=== PATIENT | male | born 2000 | race Caucasian/White ===

== ENCOUNTER 2022-01-08 16:55 | Emergency (ER) | payer BC, SELFPAY ==
[2022-01-08 17:19] VITALS: BP 173/112; PULSE 85; RESP 18; TEMP 36.9; O2SAT 100
--- NOTE | 2022-01-08 20:19 | PC.NURSE ---
Pt was called for a room at 19:03, 19:36, and 20:05. Pt did not respond x 3 calls. RN searched waiting room and outside with no signs of patient. Pt did not inform staff of leaving.
== END 2022-01-08 20:40 | disposition left against medical advice (07) ==
LOC: ANHED 20:26
DX: R10.13 Epigastric pain (principal)
CPT/HCPCS: 99199

== ENCOUNTER 2022-03-07 09:37 | Emergency (ER) | payer BC, SELFPAY ==
--- NOTE | ~2022-03-07 | XR_ITS ---
EXAMINATION: XR abdomen obstructive series DATE: 03/07/2022 10:39 INDICATION: Left lower quadrant pain TECHNIQUE: Upright and supine views of the abdomen were obtained. COMPARISON: None. FINDINGS: The bowel gas pattern is normal. There is no free intraperitoneal gas. No dilated loops of bowel are evident. The visualized lung bases are clear. IMPRESSION: 1. Nonobstructive bowel gas pattern. Reviewed, dictated and finalized at location B.
[2022-03-07 09:54] VITALS: BP 157/103; PULSE 81; RESP 16; TEMP 36.5; O2SAT 99
--- NOTE | 2022-03-07 10:19 | ED.ABDPAIN ---
HPI - Abdominal Pain General Chief Complaint: Abdominal Pain Stated Complaint: Left side pain Time Seen by Provider: 03/07/22 10:19 Source: patient Mode of arrival: ambulatory Limitations: no limitations History of Present Illness HPI narrative: 21-year-old male with no significant medical history presents with complaint of left lower quadrant abdominal pain for 3 days. Reports that 4 days ago he lifted a large motor that weighed approximately 700 to 800 pounds coworkers into the back of a pickup truck. Reports some mild pain at that time when picking up the motor. The next day and pain became worse. Pain worse with movement, squatting, coughing. Having normal bowel movements. No urinary symptoms. Denies nausea vomiting. Does not have a PCP. All systems reviewed and negative except as noted above. Related Data Home Medications Medication Instructions Recorded Confirmed No Home Medications 03/07/22 03/07/22 Allergies Allergy/AdvReac Type Severity Reaction Status Date / Time No Known Allergies Allergy Mild Unverified 04/11/09 15:32 Review of Systems Review of Systems: CONSTITUTIONAL: Denies fever, chills, or sweats. EYES: Denies visual changes, redness, or discharge. ENT: Denies rhinorrhea, congestion, sore throat, or otalgia. CARDIOVASCULAR: Denies chest pain, palpitations, or edema. RESPIRATORY: Denies cough or dyspnea. GASTROINTESTINAL: Denies nausea, vomiting, or diarrhea. Reports left lower quadrant abdominal pain. GENITOURINARY: Denies dysuria or hematuria. SKIN: Denies rash or itching. MUSCULOSKELETAL: Denies back pain, joint pain, or myalgia. NEUROLOGIC: Denies headache, numbness, or weakness. PSYCHIATRIC: Denies anxiety or depression. All other systems reviewed are negative, except as documented in HPI. PMFSH Comments At time of signature, agree with nursing past medical, surgical, social and family history. There is no relevant family history pertinent to the presenting complaint. Exam Narrative: GENERAL: This is a well-nourished, well-developed patient, in no apparent distress. HEAD: normocephalic, atraumatic. EYES: PERRL. Sclera clear/white. Vision is grossly intact. EARS: External ears normal NOSE: External nose normal THROAT: Mucous membranes moist, posterior pharynx clear. NECK: Neck supple, non-tender without lymphadenopathy, masses or thyromegaly. CARDIOVASCULAR: Regular rate and rhythm without murmurs, gallops, or rubs. RESPIRATORY: Clear to auscultation. Breath sounds equal bilaterally. No wheezes, rales, or rhonchi. GASTROINTESTINAL: Tenderness to left lower quadrant. Abdomen soft, nondistended. Bowel sounds are active. No hepato-splenomegaly, or palpable masses. No guarding. SKIN: warm, Dry, intact with no suspicious lesions or rash, good texture and turgor. NEURO: awake, alert, and oriented to person, place and time. There were no obvious focal neurologic abnormalities. EXTREMITIES: Normal range of motion to all extremities. BACK: Nontender without deformity. No CVA tenderness. Course Course Level of Care: Express Care Visit Vital Signs Vital signs: Vital Signs Temperature 36.5 C 03/07/22 09:54 Pulse Rate 81 03/07/22 09:54 Respiratory Rate 16 03/07/22 09:54 Blood Pressure 157/103 H 03/07/22 09:54 Pulse Oximetry 99 03/07/22 09:54 Temperature 36.5 C 03/07/22 09:54 Pulse Rate 81 03/07/22 09:54 Respiratory Rate 16 03/07/22 09:54 Blood Pressure 157/103 H 03/07/22 09:54 Pulse Oximetry 99 03/07/22 09:54 Reviewed MDM - Abdominal Pain MDM Narrative Medical decision making narrative: Obstructive series negative. Discussed results with patient. Recommend transfer to ER for further evaluation of abdominal hernia. Patient reports that he prefers to follow-up with her primary care physician. States that he is going to contact his mom for her primary care physician. Does state that if pain is worse or has any changes to bowels he will go to the ER.
== END 2022-03-07 11:31 | disposition home or self-care (01) ==
PROVIDERS: Emergency Provider Nurse Practitioner Family
DX: R10.32 Left lower quadrant pain (principal)
CPT/HCPCS: 74019; 81003; 99213; G0463

== ENCOUNTER 2022-03-09 17:46 | Emergency (ER) | payer BC, SELFPAY ==
--- NOTE | ~2022-03-09 | CT_ITS ---
EXAMINATION: CT abdomen pelvis wo con DATE: 03/09/2022 18:56 INDICATION: LLQ pain TECHNIQUE: Computed tomography (CT) of the abdomen and pelvis was performed without intravenous contr ast. Automated exposure control and iterative reconstruction technique were employed. The dose-length product was 876.73 mGy-cm. COMPARISON: None FINDINGS: Lower thorax: Unremarkable Liver: Diffuse low-density. Biliary/Gallbladder: Gallbladder is normal. No bile duct dilation. Spleen: Normal. Pancreas: No mass or duct dilation. Adrenals:No mass. Kidneys: No mass, stone, or hydronephrosis. GI tract: No small or large bowel dilation. Normal appendix. Mesentery/Peritoneum: No ascites, mass, or free air. Retroperitoneum: No mass.. Pelvis: Pelvic organs are within normal limits. Soft Tissues: Small fat-containing left inguinal hernia, otherwise soft tissues and body wall unremar kable. Bones: No acute osseous finding. IMPRESSION: No acute abdominopelvic process. Hepatic steatosis. Reviewed, dictated and finalized at location K.
--- NOTE | ~2022-03-09 | US_ITS ---
EXAMINATION: US scrotum doppler DATE: 03/09/2022 19:29 INDICATION: Left lower quadrant abdominal pain radiating to the left scrotum. TECHNIQUE: Grayscale and Doppler ultrasound images of the testes were obtained. COMPARISON: None. FINDINGS: The right testis measures 5.2 x 3.2 x 2.8. The left testis measures 4.3 x 3.6 x 2.2. There is normal vascular flow to both testes. The right epididymis is normal with normal vascular flow and contains a 1.3 cm cyst. The left epididymis is normal with normal vascular flow. Small bilateral hydr oceles. Prominent left varicoceles. IMPRESSION: 1. No sonographic evidence of torsion. 2. Prominent left varicocele. Reviewed, dictated and finalized at location K.
[2022-03-09 17:52] VITALS: BP 155/93; PULSE 112; RESP 17; TEMP 36.7; O2SAT 100
[2022-03-09 18:16] LABS: Basophils Percent Auto 0.3 % (0.2-1.2); Eosinophils Absolute Auto 0.1 K/mm3 (0-0.3); Eosinophils Percent Auto 0.8 % (0-4.4); Hematocrit 46.9 % (42.0-52.0); Hemoglobin 15.7 g/dL (14.0-18.0); Immature Granulocyte Absolute 0.09 K/mm3 (0.00-0.031); Immature Granulocyte Percent A 1.5 % (0-0.5); Lymphocytes Absolute Auto 2.88 K/mm3 (0.9-3.2); Lymphocytes Percent Auto 48.5 % (18.3-44.2); Mean Corpuscular HGB Conc 33.5 g/dl (32-36); Mean Corpuscular Hemoglobin 34.1 pg (26-34); Mean Corpuscular Volume 101.7 fl (80-100); Monocytes Absolute Auto 0.5 K/mm3 (0.1-0.6); Monocytes Percent Auto 8.6 % (2.6-8.5); Neutrophils Absolute Auto 2.4 K/mm3 (1.3-6.7); Neutrophils Percent Auto 40.3 % (45.5-73.1); Platelet Count Result 321 k/mm3 (150-375); Red Blood Count 4.61 M/mm3 (4.6-6.20); Red Cell Distribution Width 12.5 % (11.5-14.5); White Blood Count 5.9 K/mm3 (4.5-10.0)
[2022-03-09 18:28] LABS: Alanine Aminotransferase 371 U/L (4-50); Albumin Level 4.9 g/dL (3.5-5.1); Alkaline Phosphatase 126 U/L (38-126); Anion Gap 14 mmol/L (8-16); Aspartate Amino Transferase 263 U/L (17-59); Bilirubin,Total 0.6 mg/dL (0.2-1.3); Blood Urea Nitrogen 9 mg/dL (9-20); Calcium 9.1 mg/dL (8.4-10.2); Carbon Dioxide 22 mmol/L (22-30); Chloride 106 mmol/L (98-107); Estimated CRCL calculation 138 ml/min; Estimated Glomerular Filt Rate > 60; Glucose 124 mg/dL (65-110); Lipase 91 U/L (23-300); Potassium 3.8 mmol/L (3.4-5.0); Sodium 142 mmol/L (137-145)
--- NOTE | 2022-03-09 18:38 | ED.ABDPAIN ---
HPI - Abdominal Pain General Chief Complaint: Abdominal Pain Stated Complaint: abdominal pain Time Seen by Provider: 03/09/22 18:07 History of Present Illness HPI narrative: 21-year-old male presents to the emergency room for evaluation of lower abdominal pain and left testicle pain. Patient states he has been experiencing left testicular pain for about 6 days, started after he was lifting a heavy object. Patient also complains of left lower quadrant pain, associated with constipation, that he has had for 3 days. Patient patient states that he has experiencing flatulence. Denies any nausea or vomiting. Patient states that he was seen at urgent care, and was told he might have diverticulitis as seen on the KUB. Patient denies fever. Denies injury or trauma to testicles. Denies dysuria. States does have a new sexual partner. Related Data Home Medications Medication Instructions Recorded Confirmed No Home Medications 03/07/22 03/07/22 Allergies Allergy/AdvReac Type Severity Reaction Status Date / Time No Known Allergies Allergy Mild Verified 03/09/22 17:55 Review of Systems Review of Systems: CONSTITUTIONAL: Denies fever, chills, or sweats. EYES: Denies visual changes, redness, or discharge. ENT: Denies rhinorrhea, congestion, sore throat, or otalgia. CARDIOVASCULAR: Denies chest pain, palpitations, or edema. RESPIRATORY: Denies cough or dyspnea. GASTROINTESTINAL: Reports left lower quadrant pain, constipation GENITOURINARY: Reports left testicular pain SKIN: Denies rash or itching. MUSCULOSKELETAL: Denies back pain, joint pain, or myalgia. NEUROLOGIC: Denies headache, numbness, dizziness, or weakness. PSYCHIATRIC: Denies anxiety or depression. Exam Narrative: GENERAL: Well-appearing, well-nourished, and in no acute distress. HEAD: Normocephalic, atraumatic. EYES: PERRLA and EOMI. CHEST: Clear to auscultation. No respiratory distress. No wheezes rales or rhonchi HEART: Regular rate and rhythm. No murmur heard. Normal peripheral pulses. ABDOMEN: Left lower quadrant tenderness, soft, nondistended, normal bowel sounds : Left posterior testicle pain EXTREMITIES: Normal range of motion. No edema. SKIN: Warm, dry, no rash. NEURO: No focal deficits. Alert and oriented x3. PSYCH: Normal mood and affect. Course Vital Signs Vital signs: Vital Signs Temperature 36.7 C 03/09/22 17:52 Pulse Rate 112 H 03/09/22 17:52 Respiratory Rate 17 03/09/22 17:52 Blood Pressure 155/93 H 03/09/22 17:52 Pulse Oximetry 100 03/09/22 17:52 Temperature 36.7 C 03/09/22 17:52 Pulse Rate 112 H 03/09/22 17:52 Respiratory Rate 17 03/09/22 17:52 Blood Pressure 155/93 H 03/09/22 17:52 Pulse Oximetry 100 03/09/22 17:52 MDM - Abdominal Pain MDM Narrative Medical decision making narrative: 21-year-old male presented the emergency room with complaints of a lower left abdominal abdominal pain that radiated into his testes. Patient states that testicular pain was worse when he was standing up, and and relieved when he lie down. Patient also complained that he was constipated for several days. Patient also admits to heavy alcohol use. CBC and CMP were unremarkable. Liver enzymes were elevated, likely due to his alcohol use. CT scan demonstrated liver steatosis otherwise no acute abnormalities. Testicular ultrasound showed varicocele the left testis. Medical Records Attestation: I reviewed the patient's medical records. Lab Data Attestation: I reviewed the patient's lab results. Result diagrams: 03/09/22 18:10 03/09/22 18:10 Labs: Lab Results 03/09/22 03/09/22 Range/Units 18:10 18:10 WBC 5.9 (4.5-10.0) K/mm3 RBC 4.61 (4.6-6.20) M/mm3 Hgb 15.7 (14.0-18.0) g/dL Hct 46.9 (42.0-52.0) % MCV 101.7 H (80-100) fl MCH 34.1 H (26-34) pg MCHC 33.5 (32-36) g/dl RDW 12.5 (11.5-14.5) % Plt Count 321 (150-375) k/mm3 MPV 9.0 (7.4-10.4) fl Immatu
[2022-03-09] MEDS: SODIUM CHLORIDE 0.9% IV 1,000 ML 999 ML IV CONT (18:40)
--- NOTE | 2022-03-09 19:24 | PC.NURSE ---
Patient in US at this time. Report received from AZAM Jeffers. This nurse assumed care of patient at this time.
== END 2022-03-09 20:43 | disposition home or self-care (01) ==
PROVIDERS: Emergency Medicine; Emergency Provider Nurse Practitioner Family; PCP Family Medicine
DX: I86.1 Scrotal varices (principal); K59.00 Constipation, unspecified; R74.01 Elevation of levels of liver transaminase levels; R10.32 Left lower quadrant pain
CPT/HCPCS: 36415; 74176; 76870; 80053; 83690; 85025; 93976; 96360; 99284; J7030

== ENCOUNTER 2022-07-27 12:21 | Observation (INO) | payer BC, SELFPAY ==
[2022-07-27] VITALS (11 sets, daily range): BP systolic 142–180; BP diastolic 102–122; PULSE 74–86; RESP 16–20; TEMP 36.4–36.8; O2SAT 96–99; BMI 31.4
--- NOTE | ~2022-07-27 | US_ITS ---
US abdomen limited INDICATION: Transaminitis. Alcohol abuse. PROCEDURE: Realtime right upper abdominal ultrasound. COMPARISON: No prior studies for comparison. FINDINGS: The pancreas is normal without focal mass or pancreatic ductal dilation. Liver echotexture is increased, compatible with fatty infiltration. There is normal directional flow in the portal ve in. The gallbladder is normal without stones, gallbladder wall thickening or pericholecystic fluid. Comm on bile duct measures 4 mm. No sonographic Donohue's sign. IMPRESSION: 1: Hepatic steatosis. Reviewed, dictated and finalized at location A. IMPRESSION: 1: Hepatic steatosis.
--- NOTE | ~2022-07-27 | XR_ITS ---
XR abdomen NG/feed tube insert INDICATION: Evaluate NG tube position. TECHNIQUE: Limited KUB perform for evaluating NG tube . COMPARISON: 03/07/2022 FINDINGS: NG tube tip in the stomach. Visualized bowel gas pattern is unremarkable. IMPRESSION: 1: NG tube tip in the stomach. Reviewed, dictated and finalized at location A.
[2022-07-27 13:04] LABS: Basophils Absolute Auto 0.1 K/mm3 (0.0-0.1); Basophils Percent Auto 0.4 % (0.2-1.2); Eosinophils Percent Auto 0.2 % (0-4.4); Hematocrit 46.7 % (42.0-52.0); Hemoglobin 15.9 g/dL (14.0-18.0); Immature Granulocyte Absolute 0.05 K/mm3 (0.00-0.031); Immature Granulocyte Percent A 0.4 % (0-0.5); Lymphocytes Absolute Auto 1.78 K/mm3 (0.9-3.2); Lymphocytes Percent Auto 13.8 % (18.3-44.2); Mean Corpuscular Hemoglobin 34.8 pg (26-34); Mean Corpuscular Volume 102.2 fl (80-100); Mean Platelet Volume 9.1 fl (7.4-10.4); Monocytes Absolute Auto 1.1 K/mm3 (0.1-0.6); Monocytes Percent Auto 8.3 % (2.6-8.5); Neutrophils Absolute Auto 9.9 K/mm3 (1.3-6.7); Neutrophils Percent Auto 76.9 % (45.5-73.1); Platelet Count Result 366 k/mm3 (150-375); Red Blood Count 4.57 M/mm3 (4.6-6.20); White Blood Count 12.9 K/mm3 (4.5-10.0)
[2022-07-27 13:15] LABS: Ethanol 15 mg/dL (<10)
--- NOTE | 2022-07-27 13:19 | ED.GIBLEED ---
HPI - GI Bleed General Chief complaint: GI Bleed Stated complaint: blood tinged sputum and blood in vomit Time Seen by Provider: 07/27/22 12:48 History of Present Illness HPI Narrative: 22-year-old male here for evaluation of nausea, vomiting for the past week. Patient states that he has had about 4 episodes of vomit that have been pink-tinged over the past week in addition to numerous episodes of vomiting nonbloody emesis. States he drinks about 1/5 of alcohol per day, last drink was last evening. He has no history of withdrawal seizures. He denies any abdominal pain, fevers, chills, blood in his stools. Related Data Home Medications Medication Instructions Recorded Confirmed No Home Medications 03/07/22 07/27/22 Allergies Allergy/AdvReac Type Severity Reaction Status Date / Time No Known Allergies Allergy Mild Verified 07/27/22 17:30 Review of Systems Review of Systems: Gen: Denies fevers or chills Eyes: Denies eye pain or visual change ENT: Denies congestion Respiratory: Denies shortness of breath or cough CV: Denies chest pain or palpitations GI: Reports nausea and vomiting with blood-tinged vomit. : denies burning, urgency, frequency or hematuria Musculoskeletal: Denies back pain or muscle pain Neuro: Denies numbness, tingling, weakness or focal weakness Skin: Denies rash Except as documented, all other systems reviewed and negative [facility] Past Medical History Medical History (Updated 07/27/22 @ 15:51 by Hetal Iglesias PA-C) Alcohol abuse Tobacco dependence Surgical History Surgical History (Updated 07/27/22 @ 15:51 by Hetal Iglesias PA-C) No history of previous surgery Family History Family History (Updated 07/27/22 @ 17:41 by Anjana Cardenas RN) Mother Hypertension Social History Social History (Updated 07/27/22 @ 15:52 by Hetal Iglesias PA-C) Social History: The patient lives in [place] with his mother and younger brother. He works at a local [employer]. He smokes about a pack of cigarettes a day. Drinks between a pint and a 5th of hard alcohol daily. No illicit substance abuse. He designates his mother, Kanchan Dyer, as his surrogate decision maker and wishes to be a full code. Smoking packs per day: 1 Smoking cigarettes per day: 20.0 Years smoked: 5 Smoking pack-years: 5.00 Smoking status: Current every day smoker Tobacco type: cigarettes Alcohol intake: current Drinks per week: 70 Substance use: current Substance use type: marijuana Spiritual care concerns: No Exam Narrative: APPEARANCE: Well appearing, no pain in distress, well-nourished. Head: Normocephalic and atraumatic. EYES: PERRLA/EOMI, conjunctivae clear NOSE: No nasal drainage EARS: External ear normal in appearance THROAT: Oropharynx is clear. Mucous membranes are moist. NECK: Supple. No adenopathy, no masses. RESPIRATORY: Airway patent, respirations nonlabored. Clear to auscultation bilaterally, no rales, rhonchi, wheezing. CARDIOVASCULAR: Regular rate and rhythm without murmurs, rubs, or gallops. ABDOMINAL: Normoactive bowel sounds. Soft, nontender, nondistended. No rebound tenderness or guarding. MUSCULOSKELETAL: Extremities are warm and well-perfused. Moves all extremities well. No edema. NEURO: Normal speech. No focal neurologic deficits. SKIN: Skin is warm and dry. No rashes. PSYCHIATRIC: Normal affect/mood. Course Consultations Consultation #1: Spoke with Dr. Gonzalez, recommends inpatient status at this time for likely EGD. Does not recommend octreotide. Date: 07/27/22 Time: 14:24 Vital Signs Vital signs: Vital Signs Temperature 98.3 F 07/27/22 12:25 Pulse Rate 86 07/27/22 12:25 Respiratory Rate 20 07/27/22 12:25 Blood Pressure 170/114 H 07/27/22 12:25 Pulse Oximetry 99 07/27/22 12:25 Temperature 97.6 F 07/27/22 17:56 Pulse Rate 78 07/27/22 17:56 Respiratory Rate 16 07/27/22 17:56 Blood Pressure 142/
[2022-07-27 13:41] LABS: Alanine Aminotransferase 250 U/L (6-50); Albumin Level 4.8 g/dL (3.5-5.1); Alkaline Phosphatase 136 U/L (38-126); Anion Gap 15 mmol/L (8-16); Aspartate Amino Transferase 292 U/L (17-59); Bilirubin,Total 1.1 mg/dL (0.2-1.3); Blood Urea Nitrogen 10 mg/dL (9-20); Calcium 9.5 mg/dL (8.4-10.2); Carbon Dioxide 25 mmol/L (22-30); Chloride 102 mmol/L (98-107); Estimated CRCL calculation 172 ml/min; Estimated Glomerular Filt Rate > 60; Glucose 128 mg/dL (65-110); Potassium 3.6 mmol/L (3.4-5.0); Sodium 142 mmol/L (137-145)
[2022-07-27] MEDS: ONDANSETRON INJ 4 MG/2 ML VIAL IV PUSH (13:58)
[2022-07-27] MEDS: PANTOPRAZOLE SODIUM IV 40 MG VIAL 80 MG IV PUSH (13:59)
[2022-07-27 14:04] LABS: INR 1.2; Prothrombin Time 14.8 Seconds (11.1-14.7)
[2022-07-27 14:06] LABS: Partial Thromboplastin Time 29.2 SECONDS (22.3-36.8)
[2022-07-27 14:49] LABS: Lipase 75 U/L (23-300)
--- NOTE | 2022-07-27 15:15 | PM.IMHP ---
H&P: HPI History of Present Illness Date/Time: 07/27/22 15:15 <Hetal Iglesias PA-C - Last Filed: 07/27/22 22:27> Chief Complaint: Blood-tinged vomit. <Hetal Iglesias PA-C - Last Filed: 07/27/22 22:27> Narrative: This is a pleasant 22-year-old male smoker with history of alcohol abuse (drinks between a pint and a 5th of hard liquor a day for the last 2 years) who presented to the emergency department via private vehicle from home for evaluation of blood-tinged vomit. More days than not, he vomits a small amount of bitter yellow stomach with scattered, small brown flecks. It is not unusual for him to have GERD symptoms and he does take Tums frequently though not on a daily basis. Over the last week or so he has noticed that the vomitus is admixed with pink or even a small amount of red blood and his mom encouraged him to come in today for evaluation. He does not have any significant abdominal discomfort, belching, or bloating. He denies melena and hematochezia. No significant NSAID use. Vital signs were stable on arrival to the emergency department and blood pressures were elevated in the 150s systolic. NG tube was inserted for lavage and a small amount of pink tinged fluid returned. Workup in the ED was significant for a stable hemoglobin and hematocrit, AST/ ALT elevation consistent with alcoholic hepatitis, and an ethyl alcohol level was 15. He is being admitted in this setting for closer monitoring and GI consultation. At the time my evaluation he has no specific complaints and he is feeling a lot better after his NG tube was removed. He does have some fine tremors of his hands and with further questioning it is not unusual for him to have some anxiety and tremors a couple of days after his last drink. He has no history of DTs or alcohol withdrawal seizures. <Hetal Iglesias PA-C - Last Filed: 07/27/22 22:27> Review of Systems Review of Systems: Twelve systems were reviewed and are negative except for as per HPI. <Hetal Iglesias PA-C - Last Filed: 07/27/22 22:27> [facility] Past Medical History Medical History: Medical History Alcohol abuse Tobacco dependence <Hetal Iglesias PA-C - Last Filed: 07/27/22 22:27> Surgical History Surgical History: Surgical History No history of previous surgery <Hetal Iglesias PA-C - Last Filed: 07/27/22 22:27> Family History Family History: Family History Mother Hypertension <Hetal Iglesias PA-C - Last Filed: 07/27/22 22:27> Social History Social History: Social History Social History: The patient lives in [place] with his mother and younger brother. He works at a local [employer]. He smokes about a pack of cigarettes a day. Drinks between a pint and a 5th of hard alcohol daily. Occasional marijuana use. He designates his mother, Kanchan Dyer, as his surrogate decision maker and wishes to be a full code. Spiritual care concerns: No <Hetal Iglesias PA-C - Last Filed: 07/27/22 22:27> Meds Home Medications and Allergies Home medications: Home Medications Medication Instructions Recorded Confirmed Type chlordiazepoxide HCl 25 mg capsule 25 mg PO BID PRN alcohol 07/28/22 Rx withdrawal #10 caps folic acid 1 mg tablet 1 mg PO DAILY #30 tabs 07/28/22 Rx multivitamin-iron 9 mg-folic acid 1 tablet PO QAM #30 tabs 07/28/22 Rx 400 mcg-calcium and minerals tablet (Thera M Plus (ferrous fumarate)) omeprazole 40 mg capsule,delayed 40 mg PO DAILY #30 caps 07/28/22 Rx release thiamine HCl (vitamin B1) 100 mg 100 mg PO QAM #30 tabs 07/28/22 Rx tablet (Vitamin B-1) <Hetal Iglesias PA-C - Last Filed: 07/27/22 22:27> Allergies/Adverse reactions: Allergie
[2022-07-27 16:26] LABS: SARS-CoV-2 RNA PCR Negative
--- NOTE | 2022-07-27 17:35 | ADMGEN ---
This patient, Oneil Pichardo, was admitted to Medical Room 347-01. Patient/family oriented to hospital policies and general routines including ID bracelet, bed and alarms, visiting hours, pain management, procedures, bathroom and other care routines, personal items, smoking policy, room service/diet, and visiting hours. Information on how to activate the Rapid Response Team has been discussed. Patient/Family are encouraged to report perceived risks to care and to ask questions if they do not understand what they are told or what they should do.
[2022-07-27] MEDS: chlordiazePOXIDE (*CRX) 25 MG CAPSULE PO (21:01)
[2022-07-27] MEDS: SODIUM CHLORIDE 0.9% IV 1,000 ML 100 ML IV CONT (21:01)
[2022-07-27] MEDS: NICOTINE (*PBKC) 21 MG PATCH 1 PATCH TRANSDERM (22:07)
[2022-07-27 23:04] LABS: Hematocrit 43.1 % (42.0-52.0); Hemoglobin 14.2 g/dL (14.0-18.0)
[2022-07-27] MEDS: THIAMINE HCL 200 MG/2 ML VIAL 100 MG IV PUSH (23:06)
[2022-07-27 23:14] LABS: Alanine Aminotransferase 187 U/L (6-50); Albumin Level 4.1 g/dL (3.5-5.1); Alkaline Phosphatase 107 U/L (38-126); Aspartate Amino Transferase 178 U/L (17-59); Bilirubin,Total 1.1 mg/dL (0.2-1.3); Magnesium 1.8 mg/dL (1.6-2.3)
[2022-07-28] VITALS: BP 160/98
[2022-07-28 00:17] VITALS: BP 160/98
[2022-07-28 04:00] VITALS: BP 160/98
[2022-07-28 04:44] VITALS: BP 156/92; PULSE 81; RESP 18; TEMP 36.3; O2SAT 96
[2022-07-28] MEDS: SODIUM CHLORIDE 0.9% IV 1,000 ML 100 ML IV CONT (05:51)
[2022-07-28] MEDS: chlordiazePOXIDE (*CRX) 25 MG CAPSULE PO ×2 (05:51→12:50)
[2022-07-28] MEDS: FOLIC ACID 1 MG TABLET PO (10:21)
[2022-07-28] MEDS: THERAPEUTIC MULTIVITAMINS/MINERALS TAB (*BKC) 1 TABLET PO (10:21)
[2022-07-28] MEDS: PANTOPRAZOLE SODIUM IV 40 MG VIAL IV PUSH (10:21)
[2022-07-28] MEDS: THIAMINE HCL 100 MG TABLET PO (10:21)
--- NOTE | 2022-07-28 11:07 | WPDGICN ---
Assessment and Plan Assessment and plan (1) Bloody vomitus: Code(s): K92.0 - Hematemesis Status: Acute Assessment and Plan: as noted above he has had several episodes of emesis this we can on this at least for 5 episode it was blood tinged. He has not had black tarry stools. His hemoglobin is stable, 15.2 on admission and 14 after rehydration. MCV is elevated at 102 (2) Nausea and vomiting: Code(s): R11.2 - Nausea with vomiting, unspecified Status: Acute Assessment and Plan: today he is not nauseated and would like to try eating. I told we will try 1st on a full liquid diet. if he has no emesis with advancing his diet, then it is possible we could let him go today. I told will need to perform an EGD in the near future. He would like to do that as an outpatient if at all possible. (3) Alcoholic hepatitis: Code(s): K70.10 - Alcoholic hepatitis without ascites Status: Acute Assessment and Plan: His transaminitis suggests alcohol hepatitis. Hopefully biopsy staining these will come down. We had a long discussion about the need for him to stop drinking because of the risk of cirrhosis. I explained that the longer he drinks the more that he will have that risk and particular because he already has significant enzyme elevation at this. Fortunately, bilirubin and albumin are still normal. I explained that we will need to follow him as an outpatient to ensure that his liver function returns to normal assuming he is able to avoid drinking (4) Alcohol abuse: Code(s): F10.10 - Alcohol abuse, uncomplicated Status: Acute Assessment and Plan: we had a long discussion regarding the importance of discontinuing alcohol. I told that if he stops drinking he should be at low risk for developing cirrhosis. over time we will be able to give him the better picture. The plan for now is for him to stop drinking completely and recheck his liver enzymes as an outpatient in about 4 weeks when I will see him in the office. Plan Advance his diet as tolerated. Consider letting him go home today and plan EGD within the next week as an outpatient. GI Consult Note Consult date/time: 07/28/22 11:07 HPI: Oneil Pichardo is a 22 year old male who presented to the emergency room yesterday history of being nauseated having recurrent vomiting for the past week. Over the past few days he has had pink slightly bloody emesis on several occasions. He was not having abdominal pain or fever. He has not seen blood in his stools nor has he had black or tarry stools. He has no history of gastrointestinal diseases. He states he drinks up to 1/5 of alcohol per day. He has never been hospitalized with alcohol related problems or withdrawal but admits that there was a time when he had a 2 day spell of being shaky and needing to have a drink early in the morning because he had withdrawal type symptoms. He has never been told that he has liver disease. His LFTs are elevated here with AST 292 and ALT of 250. Alkaline phosphatase is also high at 136. Has never had hepatitis or yellow jaundice. He is not aware of any family history of liver disease. He has had no other problems such as a chronic abdominal pain, anorexia, chronic indigestion, dysphagia common change in bowel habits. Review of Systems Review of Systems: All systems reviewed & are unremarkable except as noted in HPI and below PMFSH Past Medical History Medical History Alcohol abuse Tobacco dependence Surgical History Surgical History No history of previous surgery Family History Family History Mother Hypertension Social History Social History Social History: The patient lives in [place] with his m
--- NOTE | 2022-07-28 13:30 | PM.IMPN ---
Progress Note: A&P Assessment and Plan (1) Bloody vomitus: Code(s): K92.0 - Hematemesis Status: Acute Assessment and Plan: The patient endorses having at least 1 episode of emesis most days, typically in the mid morning. It is usually yellow stomach acid admixed with small brown flecks however over the last week he has noticed pink and on occasion bright red blood in the vomitus. He is being admitted overnight for closer monitoring and GI consultation. He has been started on Protonix 40 milligrams b.i.d.. He can have clear liquids tonight but will be NPO after midnight for probable EGD tomorrow. Dr. Gonzalez has been consulted and his input is greatly appreciated. (2) Elevated blood pressure reading: Code(s): R03.0 - Elevated blood-pressure reading, without diagnosis of hypertension Status: Acute Assessment and Plan: He reports feeling a bit anxious thus some of this may be related to alcohol withdrawal. Continue to monitor blood pressures closely initiate antihypertensives if indicated, depending on how he trends. (3) Alcoholic hepatitis: Code(s): K70.10 - Alcoholic hepatitis without ascites Status: Acute Assessment and Plan: AST and ALT are elevated, likely due to alcoholic hepatitis. Right upper quadrant ultrasound ordered to evaluate for possible underlying liver disease. Check hepatitis panel for completeness sake. (4) Alcohol abuse: Code(s): F10.10 - Alcohol abuse, uncomplicated Status: Acute Assessment and Plan: He does have some tremors on exam and reports feeling slightly anxious. Start scheduled Librium and initiate CIWA protocol. We discussed the importance of cutting back significantly or better yet quitting alcohol completely to avoid complications. He already has evidence of alcoholic hepatitis on labs today. (5) Tobacco dependence: Code(s): F17.200 - Nicotine dependence, unspecified, uncomplicated Status: Acute Assessment and Plan: Nicotine patch available per patient request. Subjective Date/time seen: 07/28/22 13:30 Exam Narrative: General: Well-developed, nontoxic-appearing male sitting up in bed. Weight: 102.4 kilograms. BMI: 31.5. HEENT: Wearing a ball cap. PERRL, EOMI. Sclera anicteric. Dry blood in the left naris from recent NG tube insertion. A small amount of pink tinged, creamy opaque fluid is noted in the suction canister. Moist mucous membranes. Neck: Supple. Respiratory: Lungs are clear to auscultation bilaterally. Cardiovascular: Regular rate and rhythm with S1-S2. Gastrointestinal: Abdomen is soft, nontender, and nondistended with positive bowel sounds. Skin: Warm and dry. No rash or lesions on limited exam. Extremities: No cyanosis, clubbing, or edema. Radial and pedal pulses intact. Neurological: Alert. Cranial nerves 2-12 are grossly intact. Fine tremors of the hands. No gross focal deficits to casual conversation. Psychiatric: Pleasant and cooperative with normal mood and affect. Judgment and insight intact. Objective Data Vital Signs Vital Signs: Vital Signs - 24 hr 07/27/22 14:30 07/27/22 15:30 07/27/22 16:30 Temperature Pulse Rate 86 82 74 Respiratory Rate 20 16 20 Blood Pressure 161/110 H 163/112 H 152/108 H Pulse Oximetry 96 98 97 Oxygen Delivery 07/27/22 17:05 07/27/22 17:56 07/27/22 18:13 Temperature 97.6 F Pulse Rate 74 78 Respiratory Rate 20 16 Blood Pressure 157/102 H 166/116 H 142/118 H Pulse Oximetry 98 98 Oxygen Delivery 07/27/22 20:46 07/27/22 20:00 07/27/22 20:00 Temperature 97.8 F Pulse Rate 82 82 Respiratory Rate 16 16 Blood Pressure 180/122 H 180/122 H Pulse Oximetry 98 98 Oxygen Delivery Room Air 07/27/22 22:25 07/28/22 00:17 07/28/22 00:00 Temperature Pulse Rate Respiratory Rate Blood Pressure 180/122 H 160/98 H 160/98 H Pulse Oximetry Oxygen Delivery 07/28/22 04:00 07/28/22 04:44
--- NOTE | 2022-07-28 13:56 | PM.DS ---
DS: Admitting Diagnosis Discharge Date 07/28/2022 Admitting Diagnosis blood-tinged vomiting DS: Discharge Diagnosis Discharge Diagnosis (1) Bloody vomitus: Code(s): K92.0 - Hematemesis Status: Acute (2) Elevated blood pressure reading: Code(s): R03.0 - Elevated blood-pressure reading, without diagnosis of hypertension Status: Acute (3) Alcoholic hepatitis: Code(s): K70.10 - Alcoholic hepatitis without ascites Status: Acute (4) Alcohol abuse: Code(s): F10.10 - Alcohol abuse, uncomplicated Status: Acute (5) Tobacco dependence: Code(s): F17.200 - Nicotine dependence, unspecified, uncomplicated Status: Acute DS: Summary Hospital Course Reason for hospitalization: This is a pleasant 22-year-old male smoker with history of alcohol abuse (drinks between a pint and a 5th of hard liquor a day for the last 2 years) who presented to the emergency department via private vehicle from home for evaluation of blood-tinged vomit. More days than not, he vomits a small amount of bitter yellow stomach with scattered, small brown flecks. It is not unusual for him to have GERD symptoms and he does take Tums frequently though not on a daily basis. Over the last week or so he has noticed that the vomitus is admixed with pink or even a small amount of red blood and his mom encouraged him to come in today for evaluation. He does not have any significant abdominal discomfort, belching, or bloating. He denies melena and hematochezia. No significant NSAID use. Vital signs were stable on arrival to the emergency department and blood pressures were elevated in the 150s systolic. NG tube was inserted for lavage and a small amount of pink tinged fluid returned. Workup in the ED was significant for a stable hemoglobin and hematocrit, AST/ ALT elevation consistent with alcoholic hepatitis, and an ethyl alcohol level was 15. He is being admitted in this setting for closer monitoring and GI consultation. At the time my evaluation he has no specific complaints and he is feeling a lot better after his NG tube was removed. He does have some fine tremors of his hands and with further questioning it is not unusual for him to have some anxiety and tremors a couple of days after his last drink. He has no history of DTs or alcohol withdrawal seizures. Hospital Course: # bloody vomitus: The patient endorses having at least 1 episode of emesis most days, typically in the mid morning.? It is usually yellow stomach acid admixed with small brown flecks however over the last week he has noticed pink and on occasion bright red blood in the vomitus. H&H remained stable. He was started on Protonix b.i.d.. GI was consulted. You will need EGD which patient getting A's to be done this week as an outpatient basis. He will be placed on PPI also advise to stop drinking. Alcohol rehabilitation resources were provided to the hospital stay. # elevated blood pressure: No prior history of hypertension. Most likely related to anxiety/alcohol withdrawal follow-up with PCP for further evaluation in short interval. # Alcoholic hepatitis: AST and ALT are elevated, likely due to alcoholic hepatitis. Right upper quadrant ultrasound with findings of hepatic steatosis. Alcohol level was elevated. # alcohol abuse: He does have some tremors on exam and reports feeling slightly anxious. Start scheduled Librium and initiate CIWA protocol. We discussed the importance of cutting back significantly or better yet quitting alcohol completely to avoid complications. He already has evidence of alcoholic hepatitis on labs . Librium p.r.n. at discharge and follow-up with PCP # tobacco dependence: Nicotine patch available per patient request. Time Spent with Patient Time attestation: Total time spent providing and/or coordinating discharge services:45 mins Exam Narrative: General:?Well-developed, nontoxic-appearing male sitting up in bed. HEENT:?We
[2022-07-28 14:00] VITALS: BP 170/110; PULSE 83; RESP 18; TEMP 36.2; O2SAT 100
== END 2022-07-28 14:20 | disposition home or self-care (01) ==
LOC: ANHED 15:40 → ANH3MED 16:55
PROVIDERS: Physician Assistant; Admitting Provider Family Medicine; Emergency Provider Emergency Medicine; PCP Family Medicine; Visit Provider Internal Medicine
DX: K92.0 Hematemesis (principal); R03.0 Elevated blood-pressure reading, without diagnosis of hypertension; K70.10 Alcoholic hepatitis without ascites; F10.10 Alcohol abuse, uncomplicated; Y90.0 Blood alcohol level of less than 20 mg/100 ml; Z20.822 Contact with and (suspected) exposure to COVID-19; F17.210 Nicotine dependence, cigarettes, uncomplicated; F12.90 Cannabis use, unspecified, uncomplicated; R14.2 Eructation; R14.0 Abdominal distension (gaseous); R79.89 Other specified abnormal findings of blood chemistry; Z79.899 Other long term (current) drug therapy
CPT/HCPCS: 36415; 76705; 80053; 80076; 80307; 83690; 83735; 85014; 85018; 85025; 85610; 85730; 86850; 86900; 86901; 96361; 96374; 96375; 99285; A9270; C9113; C9803; G0378; G0379; J2405; J3411; J7030; U0003; U0005

== ENCOUNTER 2022-12-05 10:39 | Emergency (ER) | payer BC, SELFPAY ==
[2022-12-05] VITALS (9 sets, daily range): BP systolic 147–196; BP diastolic 96–117; PULSE 97–110; RESP 16–30; TEMP 36.1; O2SAT 96–100
[2022-12-05] MEDS: LORazepam INJ (*CRX) 2 MG/ML VIAL 1 MG IV PUSH (13:30)
[2022-12-05] MEDS: SODIUM CHLORIDE 0.9% IV 1,000 ML 999 ML IV CONT (13:30)
[2022-12-05 13:40] LABS: Chloride 88 mmol/L (98-107)
[2022-12-05 13:43] LABS: Alanine Aminotransferase 139 U/L (6-50); Albumin Level 4.3 g/dL (3.5-5.1); Alkaline Phosphatase 226 U/L (38-126); Anion Gap 10 mmol/L (8-16); Aspartate Amino Transferase 399 U/L (17-59); Bilirubin,Total 2.2 mg/dL (0.2-1.3); Blood Urea Nitrogen 8 mg/dL (9-20); Carbon Dioxide 35 mmol/L (22-30); Estimated CRCL calculation 179 ml/min; Estimated Glomerular Filt Rate > 60; Glucose 144 mg/dL (65-110); Potassium 3.1 mmol/L (3.4-5.0); Sodium 133 mmol/L (137-145)
[2022-12-05 13:56] LABS: Ethanol < 10 mg/dL (<10)
[2022-12-05 14:07] LABS: Appearance Urine Clear (Clear); Bilirubin Urine 2+ (Negative); Blood Urine Negative (Negative); Color Urine Dark Yellow (Yellow); Glucose Urine UA Negative (Negative); Ketones Urine Negative (Negative); Leukocyte Esterase Ur Negative LEU/UL (Negative); Nitrate Urine Negative (Negative); Protein Urine 3+ mg/dL (Negative); Specific Grav Ur 1.015 (1.001-1.035); pH Urine >=9.0 (5.0-9.0)
[2022-12-05 14:11] LABS: Bacteria Urine Trace /hpf; Mucus Urine Rare /lpf; RBC Urine 0-2 /hpf (0-2); Squamous Epithelial Cell Urine Rare /hpf (Few); WBC Urine 0-3 /hpf
[2022-12-05 14:17] LABS: Add Urine Microscopic? YES
[2022-12-05 14:22] LABS: Amphetamine Screen Urine Negative (Negative); Barbiturate Screen Urine Negative (Negative); Benzodiazepines Screen Urine Negative (Negative); Cannabinoid Screen Urine Positive (Negative); Cocaine Screen Urine Negative (Negative); Methadone Screen Urine Negative (Negative); Opiate Screen Urine Negative (Negative); Phencyclidine Screen Urine Negative (Negative)
--- NOTE | 2022-12-05 17:13 | ED.GENADULT ---
HPI - General Adult General Chief complaint: Unspecified Stated complaint: facial numbness Time Seen by Provider: 12/05/22 12:41 History of Present Illness HPI narrative: Patient is a 22-year-old male who presents to the ER for numbness in his face. Occurred yesterday as well as today. Occurred while at work. Reports he has been feeling anxious and shaky. Patient has history of alcoholism. He mention he drank a pint of liquor 3 days ago. He does have history of withdrawal that is required chlordiazepoxide in the past. No seizures. No abdominal pain or nausea or vomiting. No urinary symptoms. Related Data Allergies Allergy/AdvReac Type Severity Reaction Status Date / Time No Known Allergies Allergy Mild Verified 07/27/22 17:30 Review of Systems Review of Systems: All systems reviewed & are unremarkable except as noted in HPI and below Constitutional: Constitutional: Denies chills and Denies fever(s) Respiratory: Respiratory: Denies cough, Denies dyspnea and Denies wheezing Gastrointestinal: Gastrointestinal: Denies abdominal pain, Denies nausea and Denies vomiting Neurologic: Denies syncope, Denies focal weakness, Reports numbness and Reports tremor(s) Psychiatric: Psychiatric: Reports anxiety and Denies depression PMFSH Past Medical History Medical History Alcohol abuse Tobacco dependence Surgical History Surgical History No history of previous surgery Family History Family History Mother Hypertension Social History Social History Social History: The patient lives in [place] with his mother and younger brother. He works at a local [employer]. He smokes about a pack of cigarettes a day. Drinks between a pint and a 5th of hard alcohol daily. Occasional marijuana use. He designates his mother, Kanchan Dyer, as his surrogate decision maker and wishes to be a full code. Spiritual care concerns: No Exam Narrative: GENERAL: Well-appearing, well-nourished, and in no acute distress. HEAD: Normocephalic, atraumatic. EYES: PERRL and EOMI. ENT: Mucous membranes moist. CHEST: Clear to auscultation. No respiratory distress. HEART: Tachycardic and regular. Normal peripheral pulses. ABDOMEN: Soft, nontender, nondistended. EXTREMITIES: Normal range of motion. No edema. SKIN: Warm, dry, no rash. NEURO: Mild tremors. Alert and oriented x3. No focal deficit. PSYCH: Anxious mood and affect. Course Course Emergency Course: Patient feels much better after Ativan and IV fluid. Tachycardia resolved. Feels comfortable discharge home. Discussed need for alcohol cessation as he has evidence of liver injury from his drinking and has significant withdrawal symptoms. He has verbalized understanding of this. Vital Signs Vital signs: Vital Signs Temperature 97.0 F L 12/05/22 10:42 Pulse Rate 110 H 12/05/22 10:42 Respiratory Rate 18 12/05/22 10:42 Blood Pressure 196/115 H 12/05/22 10:42 Pulse Oximetry 100 12/05/22 10:42 Oxygen Delivery Room Air 12/05/22 10:42 Temperature 97.0 F L 12/05/22 10:42 Pulse Rate 97 12/05/22 17:30 Respiratory Rate 18 12/05/22 17:30 Blood Pressure 160/99 H 12/05/22 17:30 Pulse Oximetry 100 12/05/22 17:30 Oxygen Delivery Room Air 12/05/22 10:42 Medical Decision Making Vital Signs Vital Signs: Vital Signs Temperature 97.0 F L 12/05/22 10:42 Pulse Rate 110 H 12/05/22 10:42 Respiratory Rate 18 12/05/22 10:42 Blood Pressure 196/115 H 12/05/22 10:42 Pulse Oximetry 100 12/05/22 10:42 Oxygen Delivery Room Air 12/05/22 10:42 Temperature 97.0 F L 12/05/22 10:42 Pulse Rate 97 12/05/22 17:30 Respiratory Rate 18 12/05/22 17:30 Blood Pressure 160/99 H 12/05/22 17:30 Pulse Oximetry 100 02
== END 2022-12-05 17:30 | disposition home or self-care (01) ==
PROVIDERS: Emergency Provider Emergency Medicine; PCP Family Medicine
DX: K70.10 Alcoholic hepatitis without ascites (principal); F10.239 Alcohol dependence with withdrawal, unspecified; Y90.0 Blood alcohol level of less than 20 mg/100 ml; F17.210 Nicotine dependence, cigarettes, uncomplicated
CPT/HCPCS: 36415; 80053; 80307; 81001; 96361; 96374; 99284; J2060; J7030

== ENCOUNTER 2024-07-27 16:48 | Emergency (ER) | payer BC, SELFPAY ==
--- NOTE | ~2024-07-27 | XR_ITS ---
XR hand LT min 3V Ordering provider: Teresa Vega NP History: . slab of concrete fell on hand . pain rt 2nd metacarpal . Comparison: None. FINDINGS: BONES: Fracture of the distal metaphysis of the second metacarpal bone. Fracture at the base of the d istal phalanx of the middle finger. JOINT SPACES: Well maintained. SOFT TISSUES: Unremarkable. IMPRESSION: Fracture of the distal metaphysis of the second metacarpal bone extending to the joint space. Fracture at the base of the distal phalanx of the middle finger. Reviewed, dictated and finalized at location A. IMPRESSION: Fracture of the distal metaphysis of the second metacarpal bone extending to th e joint space. Fracture at the base of the distal phalanx of the middle finger.
--- NOTE | 2024-07-27 16:52 | ED.UPPEXIN ---
HPI - Extremity Injury (Upper) General Chief Complaint: Extremity Injury, Upper Stated Complaint: left wrist injury Time Seen by Provider: 07/27/24 17:29 Source: patient and RN notes reviewed Mode of arrival: ambulatory Limitations: no limitations History of Present Illness HPI narrative: 24-year-old male with history of end-stage liver disease presents with concern for injury to the left hand. Reports this morning she concrete slab fell on it at work. He reports hand pain and swelling. He reports decreased flexion in the digits due to pain and swelling MD complaint: injury to: left and hand Related Data Home Medications Medication Instructions Recorded Confirmed lactulose 10 gram/15 mL oral 10 g PO DAILY 07/27/24 07/27/24 solution (Enulose) lisinopril 40 mg tablet 40 mg PO DAILY 07/27/24 07/27/24 Allergies Allergy/AdvReac Type Severity Reaction Status Date / Time No Known Allergies Allergy Mild Verified 07/27/24 17:04 Review of Systems Review of Systems: CONSTITUTIONAL: Denies malaise, chills, sweats, or fever. SKIN: Denies rash or itching, open skin, laceration, abrasion, redness, warmth MUSCULOSKELETAL: Reports left hand pain and swelling NEUROLOGIC: Denies numbness, weakness All systems reviewed & are unremarkable except as noted in HPI and below PMFSH Past Medical History Medical History Alcohol abuse Tobacco dependence Surgical History Surgical History No history of previous surgery Family History Family History Mother Hypertension Social History Social History Social History: The patient lives in [place] with his mother and younger brother. He works at a local [employer]. He smokes about a pack of cigarettes a day. Drinks between a pint and a 5th of hard alcohol daily. Occasional marijuana use. He designates his mother, Kanchan Dyer, as his surrogate decision maker and wishes to be a full code. Spiritual care concerns: No Comments At time of signature, agree with nursing past medical, surgical, social and family history. There is no relevant family history pertinent to the presenting complaint Exam Narrative: GENERAL: Well-appearing, well-nourished, and in no acute distress. HEAD: Normocephalic EYES: PERRLA, conjunctivae clear NECK: Supple. CHEST: Speaks in full sentences. No respiratory distress. HEART: Regular rate and rhythm. Normal and equal peripheral pulses. EXTREMITIES: Left hand and digits of hand have normal sensation. Strength and Range of motion limited likely due to pain and swelling. No clubbing, cyanosis. Dorsal edema and tenderness noted. Skin intact. Normal digital cascade with flexion of fingers, median, ulnar and radial nerve intact. No scissoring. Normal thumb opposition. Good capillary refill and radial pulse. Distal capillary refill less than 3 seconds. Patient is right/left hand dominant SKIN: Warn, dry, intact, pink. No rash NEURO: Alert and oriented x3. PSYCH: Normal mood and affect Course Course Emergency Course: Patient is aware of diagnosis, understands and agrees to treatment plan. Anticipatory guidance given. Patient agrees to follow-up as directed and is aware of reasons to seek care at the emergency department. Portions of this record may have been created with voice recognition software Level of Care: Express Care Visit Vital Signs Vital signs: Reviewed. Procedures Orthopedic Splinting/Casting Injury #1: Splinting/Casting Date: 07/27/24 Splinting/Casting Time: 17:46 Side: left Splint: customized in ED OCL: other (radial gutter) Pre-Procedure Neuro Vascular Exam: normal Post-Procedure Neuro Vascular Exam: normal Other Orthopedic Equipment: other (sling)
[2024-07-27 17:20] VITALS: BP 140/83; PULSE 95; RESP 18; TEMP 36.9; O2SAT 99
== END 2024-07-27 18:28 | disposition home or self-care (01) ==
PROVIDERS: Emergency Provider Nurse Practitioner; PCP Physician Assistant
DX: S62.633A Displaced fracture of distal phalanx of left middle finger, initial encounter for closed fracture (principal); S62.391A Other fracture of second metacarpal bone, left hand, initial encounter for closed fracture; N18.6 End stage renal disease; F17.210 Nicotine dependence, cigarettes, uncomplicated; W22.8XXA Striking against or struck by other objects, initial encounter; Y99.0 Civilian activity done for income or pay
CPT/HCPCS: 29125; 73130; 99214; A4565; G0463

== ENCOUNTER 2024-12-16 12:05 | Emergency (ER) | payer BC, SELFPAY ==
--- NOTE | ~2024-12-16 | XR_ITS ---
EXAMINATION: XR chest 2V DATE: 12/16/2024 12:52 INDICATION: Chest pain. Palpitations. TECHNIQUE: Frontal and lateral views of the chest were obtained. COMPARISON: CT abdomen and pelvis 03/09/2022 FINDINGS: There is no pneumonia, pleural effusion, or pneumothorax. The heart size is normal. IMPRESSION: 1. No acute cardiopulmonary disease. Reviewed, dictated and finalized at location A. AGE WRAPPER
--- NOTE | ~2024-12-16 | US_ITS ---
EXAMINATION: US right upper quadrant DATE: 12/16/2024 13:52 INDICATION: Abdominal pain. Vomiting. TECHNIQUE: Multiple grayscale and Doppler ultrasound images of the abdomen were obtained. COMPARISON: CT abdomen and pelvis 03/09/22 FINDINGS: The visualized portions of the head and body of the pancreas are normal. The liver demonstr ates coarsened echotexture and surface nodularity, consistent with cirrhosis. There is flow reversal in main portal vein. There is a periumbilical portacaval shunt. The gallbladder is normal in size. No gallstones or gallbladder wall thickening. There is no sonographic Donohue's sign. The common duct is normal and measures 3 mm. IMPRESSION: 1. Cirrhosis of the liver with portal venous hypertension. Reviewed, dictated and finalized at location A. NG MACHINE ATTENDANT
--- OUTSIDE RECORDS SUMMARY | 2024-12-16 12:08 | XMS_ITS | Referral Summary ---
Author Organization [facility] Address [address] [place] [id number] Care Team Providers Care Electrical Plumbing Supervisor Name Role Phone Liza Hickman MD Primary Care Provider +1- [phone] Allergies No known active allergies Social History Tobacco Use Types Packs/Day Years Used Date Smoking Tobacco: Never Assessed Personal Safety Answer Date Recorded Have you ever been in or are you currently in a harmful physical or emotional relationship or is someone making you feel afraid or unsafe? 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 Gender Identity Not on file Sexual Orientation Not on file Last Filed Vital Signs Vital Sign Reading Time Taken Comments Blood Pressure 169/108 07/04/2023 4:03 PM CDT Pulse 86 07/04/2023 4:03 PM CDT Temperature 36.6 C (97.9 F) 07/04/2023 4:03 PM CDT Respiratory Rate 18 07/04/2023 4:03 PM CDT Oxygen Saturation 97% 07/04/2023 4:03 PM CDT Inhaled Oxygen Concentration - - Weight 100.3 kg (221 lb 1.9 oz) 07/04/2023 4:03 PM CDT Height 182.9 cm (6') 07/04/2023 4:03 PM CDT Body Mass Index 29.99 07/04/2023 4:03 PM CDT Plan of Treatment Not on file Insurance [facility] PLAN [facility] Care Teams Electrical Plumbing Supervisor Relationship Specialty Start Date End Date Liza Hickman MD [address] [place] [address] TALHA SMITH [phone] PCP - General Family Medicine 07/04/23
--- OUTSIDE RECORDS SUMMARY | 2024-12-16 12:08 | XMS_ITS | Clinical Summary ---
Author Organization [facility] Address [address] [place] [address] Phone Care Team Providers Care Precision Dancer Name Role Phone Unavailable Primary Care Provider Unavailabl e Allergies No known active allergies Medications acetaminophen (TYLENOL) 160 mg/5 mL Oral Soln Take 13.05-19.55 mL by mouth every 4 hours as needed. 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 Gender Identity Not on file Sexual Orientation Not on file Last Filed Vital Signs Vital Sign Reading Time Taken Comments Blood Pressure 117/81 01/30/2010 11:30 AM CDT Pulse 76 01/30/2010 11:30 AM CDT Temperature 36.6 C (97.8 F) 01/30/2010 11:30 AM CDT Respiratory Rate 20 01/30/2010 11:30 AM CDT Oxygen Saturation 98% 01/30/2010 11:30 AM CDT Inhaled Oxygen Concentration - - Weight 41.7 kg (92 lb) 01/30/2010 7:45 AM CDT Height 142.2 cm (4' 8 ) 01/30/2010 7:45 AM CDT Body Mass Index 20.63 01/30/2010 7:45 AM CDT Plan of Treatment Health Maintenance Due Date Last Done Comments HPV VACCINES (1 - Male 3-dose series) 2014 DTAP/TDAP/TD VACCINES (1 - Tdap) 2018 HEPATITIS B VACCINES (1 of 3 - 19+ 3-dose series) 02/2018 INFLUENZA VACCINE (#1) 2024 [place]
--- OUTSIDE RECORDS SUMMARY | 2024-12-16 12:08 | XMS_ITS | Referral Summary ---
Author Organization [facility] Address [address] [place] [address] Care Team Providers Care Surgical Aide Name Role Phone Miguel Santos MD, Levi Caceres Primary Care Provider Source Comments [facility],non-owned Affiliates and Associated Physician Practices is amultiple site organization consisting of ambulatory clinics and hospital sitesin [place], [place], [place] and [place]. This disclosure is being madepursuant to the Care Everywhere program and may not contain all information available regarding this patient. Last updated 18.[facility] Active Problems Problem Noted Date Diagnosed Date Acute liver failure without hepatic coma 024 Social History Tobacco Use Types Packs/Day Years Used Date Smoking Tobacco: Never Assessed Sex and Gender Information Value Date Recorded Sex Assigned at Not on file Gender Identity Not on file Sexual Orientation Not on file Plan of Treatment Not on file Care Teams Surgical Aide Relationship Specialty Start Date End Date Levi Rivera Jr., MD [address] [place], [place] [phone] PCP - General 01/29/10
--- OUTSIDE RECORDS SUMMARY | 2024-12-16 12:08 | XMS_ITS | Clinical Summary ---
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
--- OUTSIDE RECORDS SUMMARY | 2024-12-16 12:08 | XMS_ITS | Clinical Summary ---
Author Organization [facility] Address [address] [facility] [place] [address] Care Team Providers Care Business Objects Analyst Name Role Phone Miguel Santos MD, Levi Caceres Primary Care Provider Source Comments [facility],non-owned Affiliates and Associated Physician Practices is amultiple site organization consisting of ambulatory clinics and hospital sitesin [place], [place], [place] and [place]. This disclosure is being madepursuant to the Care Everywhere program and may not contain all information available regarding this patient. Last updated 18.[facility] Active Problems Problem Noted Date Diagnosed Date Acute liver failure without hepatic coma 024 Social History Tobacco Use Types Packs/Day Years Used Date Smoking Tobacco: Never Assessed Sex and Gender Information Value Date Recorded Sex Assigned at Not on file Gender Identity Not on file Sexual Orientation Not on file Plan of Treatment Health Maintenance Due Date Last Done Comments HIV SCREENING 2014 HPV VACCINE (1 - Male 3-dose series) 2014 HEPATITIS C SCREENING 04/01/2017 DTAP/TDAP/TD VACCINES (1 - Tdap) 2018 HEPATITIS B VACCINE (1 of 3 - 19+ 3-dose series) 2018 COVID-19 VACCINE ( - 2023-2 5 season) 2024 INFLUENZA VACCINE (#1) 2024 DEPRESSION SCREENING 11/03/2024 ZOSTER VACCINE (1 of 2) 2049 HIB VACCINE Aged Out No longer eligi ble based on patient's age to complete this topic MENINGOCOCCAL (Group B) VACCINE Aged Out No longer eligible based on patient's age to complete this topic MENINGOCOCCAL VACCINE Aged Out No melany gene eligible based on patient's age to complete this topic PNEUMOCOCCAL VACCINE Aged Out No long er eligible based on patient's age to complete this topic Care Teams Business Objects Analyst Relationship Specialty Start Date End Date Levi Rivera Jr., MD [address] [place], [place] [phone] PCP - General 01/29/10
--- OUTSIDE RECORDS SUMMARY | 2024-12-16 12:08 | XMS_ITS | Clinical Summary ---
Author Organization [facility] Address [address] [place] [address] Care Team Providers Care Cloth Painter Name Role Phone Kalyn Pollock PA-C Primary Care Provider [phone] Allergies No known active allergies Medications Multiple Vitamin (MULTIVITAMIN ADULT OR) Take 1 tablet by mouth daily. Active Doxylamine Succinate, Sleep, (SLEEP AID OR) Take 3-4 tablets by mouth 2 (two) times daily as needed (sleep aid). Active Simethicone (MYLANTA GAS OR) Take 1 Dose by mouth every 8 (eight) hours as needed (throat pain). Active Bismuth Subsalicylate (PEPTO BISMOL OR) Take 1 Capful by mouth every 8 (eight) hours as needed (Throat pain). Active vitamin B-1 (THIAMINE) 50 MG tablet Take 2 tablets (100 mg total) by mouth daily. Active FLUoxetine (PROZAC) 10 MG tabletIndications :Anxiety Take 1 tablet (10 mg total) by mouth daily. 30 tablet 07/22/20 24 Active folic acid (FOLVITE) 1 MG tablet Take 1 tablet (1 mg total) by mouth daily. 30 tablet 07/22/20 24 Active lactulose (CHRONULAC) 10 GM/15ML solution Take 30 mLs (20 g total) by mouth 2 (two) times daily. 3600 mL 07/22/20 24 Active omeprazole (PRILOSEC) 40 MG capsule Take 1 capsule (40 mg total) by mouth daily. 30 capsule 11/30/19 25 Active omeprazole (PRILOSEC) 40 MG capsule Take 1 capsule (40 mg total) by mouth daily. 025 Discontinued sucralfate (CARAFATE) 1 G tablet Take 1 tablet (1 g total) by mouth 4 (four) times daily for 7 days. 28 tablet 11/30/19 25 025 Active Problems Problem Noted Date Diagnosed Date Alcohol withdrawal ([facility]) 07/20/2024 Encounters Date Type Department Care Team Description 11/30/2024 9:43 AM INFO PRINT PRESS OPERATOR - 11/30/2024 1:32 PM [facility] Emergency [facility] [place] [address] Sanjeev Wynn PA Shortness Of Breath ; Dizziness Discharge Disposition: Home or Self Care (Routine Discharge) 11/30/2024 Travel 11/28/2024 2:28 AM INFO PRINT PRESS OPERATOR - 11/28/2024 3:00 AM [facility] Emergency [facility] [place] [address] Billy Elizalde MD,PHD Earache Discharge Disposition: Home or Self Care (Routine Discharge) 11/28/2024 Travel from Last 3 Months Social History Tobacco Use Types Packs/Day Years Used Date Smoking Tobacco: Every Day Cigarettes Smokeless Tobacco: Never Tobacco Cessation:Ready to Q uit: Not Asked; Counseling Given: Not Answered Alcohol Use Standard Drinks/Week Comments Yes 0 (1 standard drink = 0.6 oz pur e alcohol) [facility] Utilities Answer Date Recorded In the past 12 months has [facility] [employer], gas, oil, or water Click Quote Save threatened to shut off services in your home? No 07/21/2024 Humiliation, Afraid, Rape, and Kick questionnair e Answer Date Recorded Within the last year, have y ou been afraid of your partner or ex-partner? No 07/21/2024 Within the last year, have y ou been humiliated or emotionally abused in other ways by your partner or ex-partner? Yes Within the last year, have y ou been kicked, hit, slapped, or otherwise physically hurt by your partner or ex-partner? No 07/21/2024 Within the last year, have y ou been raped or forced to have any kind of sexual activity by your partner or ex-partner? No 07/21/2024 Overall Financial Resource Strain (CARDIA) Answe r Date Recorded How hard is it for you to pa y for the very basics like food, housing, medical care, and heating? Hard 07/21/2024 Hunger Vital Sign Answer Date Recorded Within the past 12 months, y ou worried that your food would run out before you got the money to buy more. Often true 07/21/20 24 Within the past 12 months, t he food you bought just didn't last and you didn't have money to get more. Never true 07/21/2024 PRAPARE - Transportation Answer Date Re corded In the past 12 months, has l ack of transportation kept you from medical appointments or from getting medications? No 07/04 In the past 12 months, has l ack of transportation kept you from meetings, work, or from getting things needed for daily living? No 07/21/2024 Housing Stability Vital Sign Answer Bonifacio e Recorded In the last 12 months, was t here a time when you were not able to pay the mortgage or rent on time? Yes 07/21/2024 In the past 12 months, how m any times have you moved where you were living? 0 07/21/2024 At any time in the past 12 m [facility], were you homeless or living in a fdc (including now)? No 07/21/2024 Sex and Gender Information Value Date Recorded Sex Assigned at Male 11/28/2024 2:07 AM INFO PRINT PRESS OPERATOR Legal Sex Male 6:30 PM CDT Gender Identity Not on file Sexual Orientation Not on file Last Filed Vital Signs Vital Sign Reading Time Taken Comments Blood Pressure 156/115 11/30/2024 12:00 PM INFO PRINT PRESS OPERATOR Pulse 100 11/30/2024 11:59 AM INFO PRINT PRESS OPERATOR Temperature 36.7 C (98 F) 11/30/2024 11:59 AM INFO PRINT PRESS OPERATOR Respiratory Rate 18 11/30/2024 11:59 AM INFO PRINT PRESS OPERATOR Oxygen Saturation 98% 11/30/2024 11:59 AM INFO PRINT PRESS OPERATOR Inhaled Oxygen Concentration - - Weight 81.6 kg (180 lb) 11/28/2024 2:05 AM INFO PRINT PRESS OPERATOR Height 182.9 cm (6') 11/30/2024 8:59 AM INFO PRINT PRESS OPERATOR Body Mass Index 24.41 11/28/2024 2:05 AM INFO PRINT PRESS OPERATOR Plan of Treatment Health Maintenance Due Date Last Done Comments Annual Physical 2002 Pneumococcal Vaccine: Pediatrics (0 to 5 Years) and At-Risk Patients (6 to 64 Years) (1 of 2 - PCV) 2005 HPV Vaccines (2 - Male 2-dose series) 07/18/2012 01/16/2012 DTaP, Tdap and Td Vaccines (7 - Td or Tdap) 01/15/2022 01/16/2012, 06/19/2004, 05/05/2002, Additional history exists COVID-19 Vaccine ( season) 2024 Influenza Adult (#1) 2024 12/04/2012 Hepatitis B Vaccines Completed 01/16/2000, 1999, 1999 Meningococcal Vaccine Aged Out 01/16/2012 No melany gene eligible based on patient's age to complete this topic Hepatitis C Completed 07/21/2024 Meningococcal B Vaccine Aged Out No l onger eligible based on patient's age to complete this topic RSV Immunizations Under 20 Months Aged Out No longer eligible based on patient's age to complete this topic Procedures Procedure Name Priority Date/Time Associated Diagnosis Comments XR CHEST PA+LAT STAT 11/30/2024 10:15 AM INFO PRINT PRESS OPERATOR ECG 12-LEAD STAT 11/30/2024 9:52 AM INFO PRINT PRESS OPERATOR URINALYSIS, AUTO, COMPLETE STAT 11/30/2024 9:48 AM INFO PRINT PRESS OPERATOR ETHANOL STAT 11/30/2024 9:41 AM INFO PRINT PRESS OPERATOR LIPASE STAT 11/30/2024 9:41 AM INFO PRINT PRESS OPERATOR TROPONIN, QUANT STAT 11/30/2024 9:41 AM INFO PRINT PRESS OPERATOR COMPREHENSIVE METABOLIC PANEL STAT 11/30/2024 9:41 AM INFO PRINT PRESS OPERATOR CBC W/DIFF AUTOMATED STAT 11/30/2024 9:41 AM INFO PRINT PRESS OPERATOR HEPATITIS PANEL,ACUTE Routine 07/21/2024 6:36 AM CDT from Last 3 Months or Most Recently Relevant to Health Maintenance Results * XR CHEST PA+LAT (11/30/2024 10:15 AM INFO PRINT PRESS OPERATOR) Anatomical Region Laterality Modality Chest Radiographic Alicia ging 11/30/2024 10:1 6 AM INFO PRINT PRESS OPERATOR Impressions 11/30/2024 10:16 AM INFO PRINT PRESS OPERATOR =====IMPRESSION:===== No radiographic evidence of active chest disease. Ordered By: SANJEEV WYNN Interpreted By: Dnate Cadena MD, 11/30/2024 10:16 AM Narrative 11/30/2024 10:16 AM INFO PRINT PRESS OPERATOR [place] [address] Examination: Chest x-ray 2 view Exam date/time: 11/30/2024 9:47 AM Reason For Exam: cp Chest pain Comparison: No prior exam Technique: PA and lateral views of the chest were obtained. Findings: The cardiac silhouette, mediastinal contours, and pulmonary vessels appear normal. The lungs are clear. No pneumothorax. No consolidations or effusions are seen. No evidence of bronchial wall thickening or abnormal pulmonary interstitium Procedure Note Dante Cadena MD - 11/30/2024 [place] [address] Examination: Chest x-ray 2 view Exam date/time: 11/30/2024 9:47 AM Reason For Exam: cp Chest pain Comparison: No prior exam Technique: PA and lateral views of the chest were obtained. Findings: The cardiac silhouette, mediastinal contours, and pulmonaryvessels appear normal. The lungs are clear. No pneumothorax. Noconsolidations or effusions are seen. No evidence of bronchial wallthickening or abnormal pulmonary interstitium =====IMPRESSION:===== No radiographic evidence of active chest disease. Ordered By: SANJEEV YWNN Interpreted By: Dante Cadena MD, 11/30/2024 10:16 AM us [facility] Final Resu lt * ECG 12 lead (11/30/2024 9:52 AM INFO PRINT PRESS OPERATOR) 11/30/2024 9:52 AM INFO PRINT PRESS OPERATOR Narrative [facility] - 11/30/2024 1:51 PM INFO PRINT PRESS OPERATOR [place] [address] Test Date: 2024-11-30 Pat Name: NONA PICHARDO Department: 41 Room: SERVIN Gender: Male Tape Transferrer: [id number] : 2000 Requested By: SANJEEV WYNN Order Number: [id number] Reading MD: Dante Rios Measurements Intervals [place] Rate: 74 P: 62 WI: 166 QRS: 6 QRSD: 112 T: 61 QT: 419 QTc: 465 Interpretive Statements SINUS RHYTHM MODERATE INTRAVENTRICULAR CONDUCTION DELAY [110+ ms QRS DURATION] Compared to ECG 07/20/2024 10:57:07 Intraventricular conduction delay now present Poor R-wave progression no longer present PRINT PRESS OPERATOR Procedure Note Dante Rios MD - 11/30/2024 [place] [address] [facility] Test Date: 2024-11-30 Pat Name: NONA PICHARDO Department: 41 Room: [place] Gender: Male Tape Transferrer: [id number] : 2000 Requested By: SANJEEV WYNN Order Number: [id number] Reading TRISTAN Rios Measurements Intervals [place] Rate: 74 P: 62 WI: 166 QRS: 6 QRSD: 112 T: 61 QT: 419 QTc: 465 Interpretive Statements SINUS RHYTHM MODERATE INTRAVENTRICULAR CONDUCTION DELAY [110+ ms QRS DURATION] Compared to ECG 07/20/2024 10:57:07 Intraventricular conduction delay now present Poor R-wave progression no longer present PRINT PRESS OPERATOR us Sanjeev PALOMINO ECG ORDERABLES Final Resu lt [facility] ([facility] * (ABNORMAL) URINALYSIS, AUTO, COMPLETE (11/30/2024 9:48 AM INFO PRINT PRESS OPERATOR) SPECIMEN TYPE URINE CLEAN CATCH 11/30/2024 10:03 AM [facility] COLOR (U) DARK YELLOW 11/30/2024 10:20 AM [facility] TRANSPARENCY CLEAR 11/30/2024 10:20 AM [facility] SPECIFIC GRAVITY (U) 1.026 1.001 - 1.030 11/30/2024 10:20 AM [facility] U PH 6.5 5.0 - 9.0 11/30/2024 10:20 AM [facility] LEUKOCYTES (U) NEGATIVE NEGATIVE 11/30/2024 10:20 AM [facility] NITRITES NEGATIVE NEGATIVE 11/30/2024 10:20 AM [facility] PROTEIN RANDOM (U) 300(H) <30 MG/DL 11/30/2024 10:20 AM [facility] GLUCOSE (U) NORMAL NORMAL MG/DL 11/30/2024 10:20 AM [facility] KETONES MG/DL (U) NEGATIVE NEGATIVE MG/DL 11/30/2024 10:20 AM [facility] UROBILINOGEN 8.0(A) NORMAL MG/DL 11/30/2024 10:20 AM [facility] BILIRUBIN (U) 1(A) NEGATIVE MG/DL 11/30/2024 10:20 AM [facility] BLOOD (U) 3+(A) NEGATIVE 11/30/2024 10:20 AM [facility] MUCUS MODERATE /LPF 11/30/2024 10:20 AM INFO PRINT PRESS OPERATOR [facility] WBC/HPF 4 <6 /HPF 11/30/2024 10:20 AM [facility] RBC/HPF >100(H) <6 /HPF 11/30/2024 10:20 AM [facility] BACTERIA (U) RARE(A) NONE /HPF 11/30/2024 10:20 AM [facility] SQUAMOUS EPITHELIALS RARE /HPF 11/30/2024 10:20 AM [facility] URINE SPECIMEN OBTAINED BY CLEAN CATCH PROCEDURE / Unknown 11/30/2024 9:48 AM INFO PRINT PRESS OPERATOR us Sanjeev PALOMINO URINE ORDERABLES Final Res ult [facility] [address] [place] [address], * (ABNORMAL) COMPREHENSIVE METABOLIC PANEL (11/30/2024 9:41 AM INFO PRINT PRESS OPERATOR) GLUCOSE 124(H) 70 - 99 MG/DL 11/30/2024 10:37 AM INFO PRINT PRESS OPERATOR [facility] BUN 8 7 - 18 MG/DL 11/30/2024 10:37 AM [facility] CREATININE S/P/B 0.52(L) 0.7 - 1.3 MG/DL 11/30/2024 10:37 AM INFO PRINT PRESS OPERATOR [facility] SODIUM S/P/B 140 136 - 145 MMOL/L 11/30/2024 10:37 AM [facility] POTASSIUM S/P/B 3.3(L) 3.5 - 5.1 MMOL/L 11/30/2024 10:37 AM [facility] CHLORIDE S/P/B 105 97 - 115 MMOL/L 11/30/2024 10:37 AM [facility] CO2 29.9 21 - 32 MMOL/L 11/30/2024 10:37 AM [facility] CALCIUM S/P/B 9.0 8.5 - 10.1 MG/DL 11/30/2024 10:37 AM [facility] BILIRUBIN TOTAL S/P/B 2.9(H) 0.2 - 1.2 MG/DL 11/30/2024 10:37 AM [facility] Comment: THIS ASSAY IS NOT RECOMMENDED FOR PATIENTS UNDERGOING TREATMENT WITH ELTROMBOPAG DUE TO THE POTENTIAL FOR FALSELY ELEVATED RESULTS. TOTAL PROTEIN S/P/B 7.5 6.4 - 8.2 G/DL 11/30/2024 10:37 AM [facility] ALBUMIN S/P/B 2.8(L) 3.4 - 5.0 G/DL 11/30/2024 10:37 AM [facility] AST 185(H) 15 - 37 U/L 11/30/2024 10:37 AM [facility] ALT 60 16 - 60 U/L 11/30/2024 10:37 AM [facility] ALKALINE PHOSPHATASE S/P/B 173(H) 50 - 136 U/L 11/30/2024 10:37 AM [facility] ANION GAP 5.1 2 - 10 MMOL/L 11/30/2024 10:37 AM [facility] BUN CREATININE RATIO 15.3 6 - 26 11/30/2024 10:37 AM [facility] A/G RATIO 0.6(L) 1.0 - 2.0 RATIO 11/30/2024 10:37 AM [facility] GFR ESTIMATE >90 >90 ML/MIN/1.7 3 M2 11/30/2024 10:37 AM [facility] Comment: NOTE: eGFR is not calculated for patients <18 years of age or gender unknown. This is an estimated GFR calculation using the new CKD EPI creatinine equation without race and so does not require a correction factor for race. This estimated GFR should not be used for calculating drug doses. 11/30/2024 9:41 AM INFO PRINT PRESS OPERATOR us Sanjeev [facility] Final Resu lt [facility] [address] [place] [id number], * (ABNORMAL) CBC W/DIFF AUTOMATED (11/30/2024 9:41 AM INFO PRINT PRESS OPERATOR) WBC 10.84 4.5 - 11.0 x10'3/uL 11/30/2024 10:34 AM [facility] RBC 3.76(L) 4.70 - 6.10 x10'6/uL 11/30/2024 10:34 AM [facility] HGB 13.6(L) 14.0 - 18.0 G/DL 11/30/2024 10:34 AM [facility] HCT 39.6(L) 43.0 - 54.0 % 11/30/2024 10:34 AM [facility] MCV 105.3(H) 80.0 - 94.0 FL 11/30/2024 10:34 AM [facility] MCH 36.2(H) 27.0 - 31.0 PG 11/30/2024 10:34 AM [facility] MCHC 34.3 32.0 - 36.0 G/DL 11/30/2024 10:34 AM [facility] RDW 13.4 11.5 - 14.5 % 11/30/2024 10:34 AM [facility] PLT 134 130 - 400 x10'3/uL 11/30/2024 10:34 AM [facility] MPV 9.4 9.3 - 12.2 FL 11/30/2024 10:34 AM [facility] DIFFERENTIAL TYPE AUTOMATED DIFFERENTIAL 11/30/2024 10:35 AM [facility] NEUTROPHILS % 69.6 % 11/30/2024 10:35 AM [facility] LYMPHOCYTES % 19.0 % 11/30/2024 10:35 AM [facility] MONOCYTES % 9.8 % 11/30/2024 10:35 AM [facility] EOSINOPHILS 0.7 % 11/30/2024 10:35 AM [facility] BASOPHILS 0.6 % 11/30/2024 10:35 AM [facility] IMMATURE GRANS % 0.3 % 11/30/19 10:35 AM [facility] ABS. NEUTROPHILS 7.55 1.80 - 7.70 x10'3/uL 11/30/2024 10:35 AM [facility] ABS. LYMPHOCYTES 2.06 1.00 - 4.80 x10'3/uL 11/30/2024 10:35 AM [facility] ABS. MONOCYTES 1.06(H) 0.30 - 0.82 x10'3/uL 11/30/2024 10:35 AM [facility] ABS. EOSINOPHILS 0.08 0.04 - 0.54 x10'3/uL 11/30/2024 10:35 AM [facility] ABS. BASOPHILS 0.06 0.01 - 0.08 x10'3/uL 11/30/2024 10:35 AM [facility] ABS. IMMATURE GRANULOCYTES 0.03 0.00 - 0.49 x10'3/uL 11/30/2024 10:35 AM [facility] RBC MORPHOLOGY SLIDE REVIEWED 2024 10:35 AM [facility] MACRO 1+ 11/30/2024 10:35 AM [facility] PLT EST. ADEQUATE 11/30/2024 10:35 AM [facility] 11/30/2024 9:41 AM INFO PRINT PRESS OPERATOR Sanjeev [facility] Final Resu lt [facility] [address] [place] [address], [place] [phone] * TROPONIN, QUANT (11/30/2024 9:41 AM INFO PRINT PRESS OPERATOR) TROPONIN I HIGH SENSITIVITY 5 <79 ng/L 11/30/2024 10:37 AM INFO PRINT PRESS OPERATOR [facility] Comment: HIGH DOSES OF BIOTIN, TROPONIN-SPECIFIC AUTOANTIBODIES, AND ANTIBODY THERAPY CONTAINING HAMA MAY INTERFERE WITH THIS TEST RESULT. CORRELATION TO CLINICAL HISTORY AND PRESENTATION RECOMMENDED. 11/30/2024 9:41 AM INFO PRINT PRESS OPERATOR Sanjeev [facility] Final Resu lt [facility] [address] [place] [address], [place] [phone] * LIPASE (11/30/2024 9:41 AM INFO PRINT PRESS OPERATOR) LIPASE 55 13 - 75 UNITS/L 11/30/2024 10:37 AM INFO PRINT PRESS OPERATOR [facility] 11/30/2024 9:41 AM INFO PRINT PRESS OPERATOR Sanjeev [facility] Final Resu lt Performing Organization Address City/[facility]/ZIP Co de Phone Number [facility] [address] [place] [address], [place] [phone] * (ABNORMAL) ETHANOL (11/30/2024 9:41 AM INFO PRINT PRESS OPERATOR) ALCOHOL S/P/B 0.212(H) <0.003 G/DL 11/30/2024 10:37 AM INFO PRINT PRESS OPERATOR [facility] 11/30/2024 9:41 AM INFO PRINT PRESS OPERATOR Sanjeev PALOMINO [facility]OR[facility] Final Resu lt Performing Organization Address City/[facility]/ZIP Co de Phone Number [facility] [address] [place] [phone], * HEPATITIS PANEL,ACUTE (07/21/2024 6:36 AM CDT) HEPATITIS B SURFACE AG NON-REACTI VE NON-REACTI VE 07/22/2024 9:45 AM CDT [facility] HEP B CORE IGM NON-REACTI VE NON-REACTI VE 07/22/2024 9:53 AM CDT [facility] HAV IGM NON-REACTI VE NON-REACTI VE 07/22/2024 9:55 AM CDT [facility] HEPATITIS C AB NON-REACTI VE NON-REACTI VE 07/22/2024 9:52 AM CDT [facility] 07/21/2024 6:36 AM CDT Karen Nielson SILK PRESSER LABORATORY Final Resul t [facility] [address] [place] [address], from Last 3 Months or Most Recently Relevant to Health Maintenance Insurance [facility] C/O PROVIDER SERVICES [place] STUART [id number] Care Teams Cloth Painter Relationship Specialty Start Date End Date Kalyn Pollock PA-C [address] [place] [phone] PCP - General PHYSICIAN PARIMUTUEL TICKET CASHIER 07/20/24
--- OUTSIDE RECORDS SUMMARY | 2024-12-16 12:08 | XMS_ITS | Patient Health Summary ---
Author Organization [facility] Address [address] [place] [address] Care Team Providers Care Sports Medicine Trainer Name Role Phone Miguel Santos MD, Levi Caceres Primary Care Provider Note from [facility],non-owned Affiliates and Associated Physician Practices is amultiple site organization consisting of ambulatory clinics and hospital sitesin [place], [place], [place] and [place]. This disclosure is being madepursuant to the Care Everywhere program and may not contain all information available regarding this patient. Last updated 18.[facility] Active Problems Problem Noted Date Diagnosed Date Acute liver failure without hepatic coma 024 Social History Tobacco Use Types Packs/Day Years Used Date Smoking Tobacco: Never Assessed Sex and Gender Information Value Date Recorded Sex Assigned at Not on file Gender Identity Not on file Sexual Orientation Not on file Care Teams Sports Medicine Trainer Relationship Specialty Start Date End Date Levi Rivera Jr., MD [address] [place], [place] [phone] PCP - General 01/29/10
--- NOTE | 2024-12-16 12:12 | ECG_ITS ---
Test Date: 2024-12-16 12:21:32 Measurements Intervals [place] Rate: 87 P: 50 MD: 154 QRS: -9 QRSD: 113 T: 60 QT: 430 QTc: 518 Interpretive Statements SINUS RHYTHM CANNOT R/O SEPTAL INFARCT, AGE INDETERMINATE CONSIDER INFERIOR INFARCT, AGE INDETERMINATE ABNORMAL ECG No previous ECG available for comparison Electronically Signed On 12-16-2024 12:26:17 CLOTH SPREADER by Vasu Morrison D.O.
[2024-12-16 12:15] VITALS: BP 154/96; PULSE 110; RESP 16; TEMP 36.9; O2SAT 100
[2024-12-16 12:34] LABS: Basophils Absolute Auto 0.1 K/mm3 (0.0-0.1); Basophils Percent Auto 0.5 % (0.2-1.2); Eosinophils Absolute Auto 0.1 K/mm3 (0-0.3); Eosinophils Percent Auto 0.5 % (0-4.4); Hematocrit 43.3 % (42.0-52.0); Hemoglobin 14.8 g/dL (14.0-18.0); Immature Granulocyte Absolute 0.04 K/mm3 (0.00-0.031); Immature Granulocyte Percent A 0.3 % (0-0.5); Lymphocytes Percent Auto 12.9 % (18.3-44.2); Mean Corpuscular HGB Conc 34.2 g/dl (32-36); Mean Corpuscular Hemoglobin 35.7 pg (26-34); Mean Corpuscular Volume 104.6 fl (80-100); Monocytes Absolute Auto 0.7 K/mm3 (0.1-0.6); Monocytes Percent Auto 5.7 % (2.6-8.5); Neutrophils Absolute Auto 9.9 K/mm3 (1.3-6.7); Neutrophils Percent Auto 80.1 % (45.5-73.1); Platelet Count Result 111 k/mm3 (150-375); Red Blood Count 4.14 M/mm3 (4.6-6.20); Red Cell Distribution Width 12.9 % (11.5-14.5); White Blood Count 12.4 K/mm3 (4.5-10.0)
[2024-12-16 12:45] LABS: Alanine Aminotransferase 95 U/L (6-50); Albumin Level 3.7 g/dL (3.5-5.1); Alkaline Phosphatase 222 U/L (38-126); Anion Gap 13 mmol/L (4-12); Aspartate Amino Transferase 404 U/L (17-59); Bilirubin,Total 3.7 mg/dL (0.2-1.3); Blood Urea Nitrogen 10 mg/dL (9-20); Calcium 8.1 mg/dL (8.4-10.2); Carbon Dioxide 29 mmol/L (22-30); Chloride 100 mmol/L (98-107); Estimated CRCL calculation 251 ml/min; Estimated Glomerular Filt Rate > 60; Glucose 173 mg/dL (65-110); Lipase 426 U/L (23-300); Potassium 3.8 mmol/L (3.4-5.0); Sodium 142 mmol/L (137-145)
[2024-12-16 12:51] LABS: INR 1.6; Prothrombin Time 20.1 Seconds (11.1-14.7)
[2024-12-16 12:52] LABS: Partial Thromboplastin Time 42.5 Seconds (22.3-36.8)
[2024-12-16 12:57] LABS: Troponin I < 0.012 ng/mL (0.000-0.034)
--- NOTE | 2024-12-16 13:20 | PC.NURSE ---
Karen at bedside for safety
[2024-12-16] MEDS: ONDANSETRON INJ 4 MG/2 ML VIAL IV PUSH (13:52)
[2024-12-16] MEDS: SODIUM CHLORIDE 0.9% IV 1,000 ML 999 ML IV CONT (13:52)
--- NOTE | 2024-12-16 13:58 | ED_ITS ---
HPI - Arrhythmia/Palpitations General Chief Complaint: Arrhythmia/Palpitations Stated Complaint: dizzy, palpitations, anxiety past few weeks Time Seen by Provider: 12/16/24 12:57 History of Present Illness HPI narrative: Patient is a 24-year-old male who presents ER with multiple complaints. Main issue is pain in his upper abdomen and his chest. Ongoing over last 3 days. He quit drinking alcohol due to his discomfort. Eating and drinking provokes his pain. He has had some vomiting. No fevers or chills. No diarrhea. Patient reports he is also suicidal. He has depression related to witnessing his stepfather kill himself when he was 15 years old. Patient has been admitted to psychiatric facilities in the past for suicidal ideation. He does not currently have a plan to take his own life. Denies drug or alcohol abuse in last couple days. Related Data Home Medications ?Medication ?Instructions ?Recorded ?Confirmed ?Last Taken ?Type lactulose 10 gram/15 mL oral 10 g PO DAILY 07/27/24 07/27/24 Unknown History solution (Enulose) lisinopril 40 mg tablet 40 mg PO DAILY 07/27/24 07/27/24 Unknown History Allergies Allergy/AdvReac Type Severity Reaction Status Date / Time No Known Allergies Allergy Mild Verified 12/16/24 12:57 Review of Systems 2 Review of Systems: All systems reviewed & are unremarkable except as noted in HPI and below Constitutional: Constitutional: Reports no additional constitutional complaints ENT: Reports system reviewed and no additional complaints, except as documented Cardiovascular: Cardiovascular: Reports no additional cardiovascular complaints Respiratory: Respiratory: Reports no additional respiratory complaints Gastrointestinal: Gastrointestinal: Reports abdominal pain, Denies diarrhea, Reports nausea and Reports vomiting Genitourinary: Genitourinary: Reports no additional male genitourinary complaints Psychiatric: Psychiatric: Reports depression, Denies homicidal ideation and Reports suicidal ideation [facility] Past Medical History Medical History Alcoholic hepatitis Depression Tobacco dependence Alcohol abuse Surgical History Surgical History No history of previous surgery Family History Family History Mother Hypertension Social History Social History (Updated 08/02/24 @ 15:41 by Edna Fatima MA) Social History: The patient lives in [place] with his mother and younger brother. He works at a local [employer]. He smokes about a pack of cigarettes a day. Drinks between a pint and a 5th of hard alcohol daily. Occasional marijuana use. He designates his mother, Kanchan Dyer, as his surrogate decision maker and wishes to be a full code. Smoking status: Never smoker Spiritual care concerns: No Exam 2 Narrative: GENERAL: Well-appearing, well-nourished, and in no acute distress. HEAD: Normocephalic, atraumatic. ENT: Mucous membranes moist. NECK: Supple. CHEST: Clear to auscultation. No respiratory distress. HEART: Regular rate and rhythm. Normal peripheral pulses. ABDOMEN: Soft, nontender, nondistended. EXTREMITIES: Normal range of motion. No edema. SKIN: Warm, dry, no rash. NEURO: Alert and oriented x3. PSYCH: Reports depression and suicidal ideation without plan. No hallucinations. Course Course Emergency Course: Patient is technically intoxicated. He would like to go home. His mom is present. He has no plan and just reports that he has had thoughts of self-harm but he is now recanting. His mother feels comfortable taking him into her custody and taking him home. Patient is aware of liver cirrhosis and need to discontinue alcohol is use. Vital Signs Vital signs: Vital Signs Temperature 98.5 F 12/16/24 12:15 Pulse Rate 110 H 12/16/24 12:15 Respiratory Rate 16 12/16/24 12:15 Blood Pressure 154/96 H 12/16/24 12:15 Pulse Oximetry 100 12/16/24 12:15 Oxygen Delivery Room Air 12/16/24 12:15 Temperature 98.5 F 12/16/24 12:15 Pulse Rate 110 H 12/16/24 12:15 Respiratory Rate 16 12/16/24 12:15 Blood Pressure 154/96 H 12/16/24 12:15 Pulse Oximetry 100 12/16/24 12:15 Oxygen Delivery Room Air 12/16/24 12:15 MDM - Arrhythmia/Palpitations Lab Data 12/16/24 12:28 12/16/24 12:28 Labs: Lab Results 12/16/24 12/16/24 12/16/24 Range/Units 12:28 14:52 15:23 WBC 12.4 H (4.5-10.0) K/mm3 RBC 4.14 L (4.6-6.20) M/mm3 Hgb 14.8 (14.0-18.0) g/dL Hct 43.3 (42.0-52.0) % MCV 104.6 H (80-100) fl MCH 35.7 H (26-34) pg MCHC 34.2 (32-36) g/dl RDW 12.9 (11.5-14.5) % Plt Count 111 L D (150-375) k/mm3 MPV 9.0 (7.4-10.4) fl Immature Gran % (Auto) 0.3 (0-0.5) % Neut % (Auto) 80.1 H (45.5-73.1) % Lymph % (Auto) 12.9 L (18.3-44.2) % [place] % (Auto) 5.7 (2.6-8.5) % Eos % (Auto) 0.5 (0-4.4) % Baso % (Auto) 0.5 (0.2-1.2) % Lymph # (Auto) 1.60 (0.9-3.2) K/mm3 [place] # (Auto) 0.7 H (0.1-0.6) K/mm3 Eos # (Auto) 0.1 (0-0.3) K/mm3 Baso # (Auto) 0.1 (0.0-0.1) K/mm3 Abs Immat Gran (auto) 0.04 H (0.00-0.031) K/mm3 Absolute Neuts (auto) 9.9 H (1.3-6.7) K/mm3 Absolute Nucleated RBC 0.000 (0.0-0.012) K/mm3 Nucleated RBC % 0.0 (0.0-0.2) % PT 20.1 H (11.1-14.7) Seconds INR 1.6 APTT 42.5 H (22.3-36.8) Seconds Sodium 142 (137-145) mmol/L Potassium 3.8 (3.4-5.0) mmol/L Chloride 100 (98-107) mmol/L Carbon Dioxide 29 (22-30) mmol/L Anion Gap 13 H (4-12) mmol/L BUN 10 (9-20) mg/dL Creatinine 0.40 L (0.7-1.3) mg/dL Estim Creat Clear Calc 251 ml/min Estimated GFR > 60 (59 - ) Glucose 173 H (65-110) mg/dL Calcium 8.1 L (8.4-10.2) mg/dL Total Bilirubin 3.7 H (0.2-1.3) mg/dL AST 404 H (17-59) U/L ALT 95 H (6-50) U/L Alkaline Phosphatase 222 H (38-126) U/L Troponin I < 0.012 < 0.012 (0.000-0.034) ng/mL Total Protein 8.0 (6.3-8.2) g/dL Albumin 3.7 (3.5-5.1) g/dL Lipase 426 H (23-300) U/L Urine Opiates Screen Negative (Negative) Urine Methadone Screen Negative (Negative) Ur Barbiturates Screen Negative (Negative) Ur Phencyclidine Scrn Negative (Negative) Ur Amphetamine Screen Negative (Negative) U Benzodiazepines Scrn Negative (Negative) Urine Cocaine Screen Negative (Negative) U Cannabinoids Screen Positive A (Negative) Ethyl Alcohol 355 H* (<10) mg/dL Influenza A (RT-PCR) Negative (Negative) Influenza B (RT-PCR) Negative (Negative) RSV (RT-PCR) Negative (Negative) SARS-CoV-2 RNA (RT-PCR) Negative (Negative) Discharge Plan Discharge Clinical Impression: Alcohol intoxication, Alcoholic hepatitis Patient Disposition: Home, Self-Care Condition: Stable Instructions: Alcohol Intoxication (ED) Additional Instructions: Return ER if you have thoughts of harming herself or others, you develop chest pain shortness of breath, or have additional concerns. Patient Language: Hungarian Prescriptions: No Action lisinopril 40 mg tablet 40 mg PO DAILY lactulose [Enulose] 10 gram/15 mL solution 10 g PO DAILY thiamine HCl (vitamin B1) [Vitamin B-1] 100 mg Tablet 100 mg PO QAM Qty: 30 0RF folic acid 1 mg Tablet 1 mg PO DAILY Qty: 30 0RF Thera M Plus (ferrous fumarat) 9 mg iron-400 mcg Tablet 1 tablet PO QAM Qty: 30 0RF omeprazole 40 mg capsule,delayed release(DR/EC) 40 mg PO DAILY Qty: 30 0RF chlordiazepoxide HCl 25 mg capsule 25 mg PO BID PRN (Reason: alcohol withdrawal) Qty: 10 0RF Follow-up/Referrals: Phill,CANDELARIO Mccain [Primary Care Provider] - 1 Week
--- OUTSIDE RECORDS SUMMARY | 2024-12-16 14:04 | XMS_ITS | Referral Summary ---
Author Organization [facility] Address [address] [place] [id number] Care Team Providers Care Medical Charge Entry Specialist Name Role Phone Liza Hickman MD Primary Care Provider [phone]- [phone] Allergies No known active allergies Social History [...] on file Legal Sex Male 6:57 PM HITCHER Gender Identity Not on file Sexual Orientation [...] Plan of Treatment Not on file Insurance [facility] PLAN CANDELARIO STUART [facility] Care Teams Medical Charge Entry Specialist Relationship Specialty Start Date End Date Liza Hickman MD [address] [place] [address] TALHA SMITH [id number] PCP - General Family Medicine 07/04/23
--- OUTSIDE RECORDS SUMMARY | 2024-12-16 14:04 | XMS_ITS | Referral Summary ---
Author Organization [facility] Address [address] [place] [address] Care Team Providers Care Blood Tester Fowl Name Role Phone Miguel Santos MD, Levi Caceres Primary Care Provider Source Comments [facility],non-owned Affiliates and Associated Physician Practices is amultiple site organization consisting of ambulatory clinics and hospital sitesin [place], [place], [place] and [place]. This disclosure is being madepursuant to the Care Everywhere program and may not contain all information available regarding this patient. Last updated 18.[facility] Active Problems Problem Noted Date Diagnosed Date Acute liver failure without hepatic coma 024 Social History Tobacco Use Types Packs/Day Years Used Date Smoking Tobacco: Never Assessed Sex and Gender Information Value Date Recorded Sex Assigned at Not on file Gender Identity Not on file Sexual Orientation Not on file Plan of Treatment Not on file Care Teams Blood Tester Fowl Relationship Specialty Start Date End Date Levi Rivera Jr., MD [address] [place], [place] [id number] PCP - General 01/29/10
--- OUTSIDE RECORDS SUMMARY | 2024-12-16 14:04 | XMS_ITS | Clinical Summary ---
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
--- OUTSIDE RECORDS SUMMARY | 2024-12-16 14:04 | XMS_ITS | Clinical Summary ---
Author Organization [facility] Address [address] [place] [address] Care Team Providers Care Carcass Trimmer Name Role Phone Kalyn Pollock PA-C Primary Care Provider +1- [phone] Allergies No known active allergies Medications Multiple [...] Problem Noted Date Diagnosed Date Alcohol withdrawal ([facility]) 07/20/2024 Encounters Date Type Department Care Team Description 11/30/2024 9:43 AM MILL ROLL OPERATOR - 11/30/2024 1:32 PM [facility] Emergency [facility] [place] [address] Sanjeev Wynn PA Shortness Of Breath ; Dizziness Discharge Disposition: Home or Self Care (Routine Discharge) 11/30/2024 Travel 11/28/2024 2:28 AM MILL ROLL OPERATOR - 11/28/2024 3:00 AM [facility] Emergency [facility] [place] [address] Billy Elizalde MD,PHD Earache Discharge Disposition: Home or Self Care (Routine Discharge) 11/28/2024 Travel from Last 3 Months Social History Tobacco Use Types Packs/Day Years Used Date Smoking Tobacco: Every Day Cigarettes Smokeless Tobacco: Never Tobacco Cessation:Ready to Q uit: Not Asked; Counseling Given: Not Answered Alcohol Use Standard Drinks/Week Comments Yes 0 (1 standard drink = 0.6 oz pur e alcohol) [facility] Utilities Answer Date Recorded In the past 12 months has [facility] [employer], gas, oil, or water Roller threatened to shut off services in your [...] any time in the past 12 m [facility], were you homeless or living in a fpc (including now)? No 07/21/2024 Sex and Gender Information Value Date Recorded Sex Assigned at Male 11/28/2024 2:07 AM MILL ROLL OPERATOR Legal Sex Male 6:30 PM CDT Gender Identity Not on file Sexual Orientation Not on file Last Filed Vital Signs Vital Sign Reading Time Taken Comments Blood Pressure 156/115 11/30/2024 12:00 PM MILL ROLL OPERATOR Pulse 100 11/30/2024 11:59 AM MILL ROLL OPERATOR Temperature 36.7 C (98 F) 11/30/2024 11:59 AM MILL ROLL OPERATOR Respiratory Rate 18 11/30/2024 11:59 AM MILL ROLL OPERATOR Oxygen Saturation 98% 11/30/2024 11:59 AM MILL ROLL OPERATOR Inhaled Oxygen Concentration - - Weight 81.6 kg (180 lb) 11/28/2024 2:05 AM MILL ROLL OPERATOR Height 182.9 cm (6') 11/30/2024 8:59 AM MILL ROLL OPERATOR Body Mass Index 24.41 11/28/2024 2:05 AM MILL ROLL OPERATOR Plan of Treatment Health Maintenance Due [...] XR CHEST PA+LAT STAT 11/30/2024 10:15 AM MILL ROLL OPERATOR ECG 12-LEAD STAT 11/30/2024 9:52 AM MILL ROLL OPERATOR URINALYSIS, AUTO, COMPLETE STAT 11/30/2024 9:48 AM MILL ROLL OPERATOR ETHANOL STAT 11/30/2024 9:41 AM MILL ROLL OPERATOR LIPASE STAT 11/30/2024 9:41 AM MILL ROLL OPERATOR TROPONIN, QUANT STAT 11/30/2024 9:41 AM MILL ROLL OPERATOR COMPREHENSIVE METABOLIC PANEL STAT 11/30/2024 9:41 AM MILL ROLL OPERATOR CBC W/DIFF AUTOMATED STAT 11/30/2024 9:41 AM MILL ROLL OPERATOR HEPATITIS PANEL,ACUTE Routine 07/21/2024 6:36 AM CDT from Last 3 Months or Most Recently Relevant to Health Maintenance Results * XR CHEST PA+LAT (11/30/2024 10:15 AM MILL ROLL OPERATOR) Anatomical Region Laterality Modality Chest Radiographic Alicia ging 11/30/2024 10:1 6 AM MILL ROLL OPERATOR Impressions 11/30/2024 10:16 AM MILL ROLL OPERATOR =====IMPRESSION:===== No radiographic evidence of active chest disease. Ordered By: SANJEEV WYNN Interpreted By: Dante Cadena MD, 11/30/2024 10:16 AM Narrative 11/30/2024 10:16 AM MILL ROLL OPERATOR [place] [address] Examination: Chest x-ray 2 view Exam date/time: [...] Procedure Note Dante Cadena MD - 11/30/2024 [place] [address] Examination: Chest x-ray 2 view Exam date/time: [...] disease. Ordered By: SANJEEV WYNN Interpreted By: Dante Cadena MD, 11/30/2024 10:16 AM us Sanjeev [facility] Final Resu lt * ECG 12 lead (11/30/2024 9:52 AM MILL ROLL OPERATOR) 11/30/2024 9:52 AM MILL ROLL OPERATOR Narrative [facility] - 11/30/2024 1:51 PM MILL ROLL OPERATOR [place] [address] Test Date: 2024-11-30 Pat Name: NONA PICHARDO Department: 41 Room: SERVIN Gender: Male Packing Machine Tender: [id number] : 2000 Requested By: SANJEEV WYNN Order Number: [id number] Reading MD: Dante Rios Measurements Intervals [place] Rate: 74 P: 62 LA: 166 QRS: 6 QRSD: 112 T: 61 QT: 419 QTc: 465 Interpretive Statements SINUS RHYTHM MODERATE INTRAVENTRICULAR CONDUCTION DELAY [110+ ms QRS DURATION] Compared to ECG 07/20/2024 10:57:07 Intraventricular conduction delay now present Poor R-wave progression no longer present ROLL OPERATOR Procedure Note Dante Rios MD - 11/30/2024 [place] [address] [facility] Test Date: 2024-11-30 Pat Name: NONA PICHARDO Department: 41 Room: SERVIN Gender: Male Packing Machine Tender: [id number] : 2000 Requested By: SANJEEV WYNN Order Number: [id number] Reading TRISTAN Rios Measurements Intervals Cornell Rate: 74 P: 62 LA: 166 QRS: 6 QRSD: 112 T: 61 QT: 419 QTc: 465 Interpretive Statements SINUS RHYTHM MODERATE INTRAVENTRICULAR CONDUCTION DELAY [110+ ms QRS DURATION] Compared to ECG 07/20/2024 10:57:07 Intraventricular conduction delay now present Poor R-wave progression no longer present ROLL OPERATOR us Sanjeev PALOMINO ECG ORDERABLES Final Resu lt [facility] * (ABNORMAL) URINALYSIS, AUTO, COMPLETE (11/30/2024 9:48 AM MILL ROLL OPERATOR) SPECIMEN TYPE URINE CLEAN CATCH 11/30/2024 10:03 AM [facility] COLOR (U) DARK YELLOW 11/30/2024 10:20 AM [facility] TRANSPARENCY CLEAR 11/30/2024 10:20 AM [facility] SPECIFIC GRAVITY (U) 1.026 1.001 - 1.030 11/30/2024 10:20 AM [facility] U PH 6.5 5.0 - 9.0 11/30/2024 10:20 AM [facility] LEUKOCYTES (U) NEGATIVE NEGATIVE 11/30/2024 10:20 AM [facility] NITRITES NEGATIVE NEGATIVE 11/30/2024 10:20 AM [facility] PROTEIN RANDOM (U) 300(H) <30 MG/DL 11/30/2024 10:20 AM [facility] GLUCOSE (U) NORMAL NORMAL MG/DL 11/30/2024 10:20 AM [facility] KETONES MG/DL (U) NEGATIVE NEGATIVE MG/DL 11/30/2024 10:20 AM [facility] UROBILINOGEN 8.0(A) NORMAL MG/DL 11/30/2024 10:20 AM [facility] BILIRUBIN (U) 1(A) NEGATIVE MG/DL 11/30/2024 10:20 AM [facility] BLOOD (U) 3+(A) NEGATIVE 11/30/2024 10:20 AM [facility] MUCUS MODERATE /LPF 11/30/2024 10:20 AM MILL ROLL OPERATOR [facility] WBC/HPF 4 <6 /HPF 11/30/2024 10:20 AM [facility] RBC/HPF >100(H) <6 /HPF 11/30/2024 10:20 AM [facility] BACTERIA (U) RARE(A) NONE /HPF 11/30/2024 10:20 AM [facility] SQUAMOUS EPITHELIALS RARE /HPF 11/30/2024 10:20 AM [facility] URINE SPECIMEN OBTAINED BY CLEAN CATCH PROCEDURE / Unknown 11/30/2024 9:48 AM MILL ROLL OPERATOR us Sanjeev PALOMINO URINE ORDERABLES Final Res ult [facility] [address] [place] [address], * (ABNORMAL) COMPREHENSIVE METABOLIC PANEL (11/30/2024 9:41 AM MILL ROLL OPERATOR) GLUCOSE 124(H) 70 - 99 MG/DL 11/30/2024 10:37 AM MILL ROLL OPERATOR [facility] BUN 8 7 - 18 MG/DL 11/30/2024 10:37 AM [facility] CREATININE S/P/B 0.52(L) 0.7 - 1.3 MG/DL 11/30/2024 10:37 AM MILL ROLL OPERATOR [facility] SODIUM S/P/B 140 136 - 145 MMOL/L 11/30/2024 10:37 AM [facility] POTASSIUM S/P/B 3.3(L) 3.5 - 5.1 MMOL/L 11/30/2024 10:37 AM [facility] CHLORIDE S/P/B 105 97 - 115 MMOL/L 11/30/2024 10:37 AM [facility] CO2 29.9 21 - 32 MMOL/L 11/30/2024 10:37 AM [facility] CALCIUM S/P/B 9.0 8.5 - 10.1 MG/DL 11/30/2024 10:37 AM [facility] BILIRUBIN TOTAL S/P/B 2.9(H) 0.2 - 1.2 MG/DL 11/30/2024 10:37 AM [facility] Comment: THIS ASSAY IS NOT RECOMMENDED FOR PATIENTS UNDERGOING TREATMENT WITH ELTROMBOPAG DUE TO THE POTENTIAL FOR FALSELY ELEVATED RESULTS. TOTAL PROTEIN S/P/B 7.5 6.4 - 8.2 G/DL 11/30/2024 10:37 AM [facility] ALBUMIN S/P/B 2.8(L) 3.4 - 5.0 G/DL 11/30/2024 10:37 AM [facility] AST 185(H) 15 - 37 U/L 11/30/2024 10:37 AM [facility] ALT 60 16 - 60 U/L 11/30/2024 10:37 AM [facility] ALKALINE PHOSPHATASE S/P/B 173(H) 50 - 136 U/L 11/30/2024 10:37 AM [facility] ANION GAP 5.1 2 - 10 MMOL/L 11/30/2024 10:37 AM [facility] BUN CREATININE RATIO 15.3 6 - 26 11/30/2024 10:37 AM [facility] A/G RATIO 0.6(L) 1.0 - 2.0 RATIO 11/30/2024 10:37 AM [facility] GFR ESTIMATE >90 >90 ML/MIN/1.7 3 M2 11/30/2024 10:37 AM [facility] Comment: NOTE: eGFR is not calculated for patients <18 years of age or gender unknown. This is an estimated GFR calculation using the new CKD EPI creatinine equation without race and so does not require a correction factor for race. This estimated GFR should not be used for calculating drug doses. 11/30/2024 9:41 AM MILL ROLL OPERATOR us [facility]ev [facility] Final Resu lt [facility] [address] [place] [id number], * (ABNORMAL) CBC W/DIFF AUTOMATED (11/30/2024 9:41 AM MILL ROLL OPERATOR) WBC 10.84 4.5 - 11.0 x10'3/uL 11/30/2024 10:34 AM [facility] RBC 3.76(L) 4.70 - 6.10 x10'6/uL 11/30/2024 10:34 AM [facility] HGB 13.6(L) 14.0 - 18.0 G/DL 11/30/2024 10:34 AM [facility] HCT 39.6(L) 43.0 - 54.0 % 11/30/2024 10:34 AM [facility] MCV 105.3(H) 80.0 - 94.0 FL 11/30/2024 10:34 AM [facility] MCH 36.2(H) 27.0 - 31.0 PG 11/30/2024 10:34 AM [facility] MCHC 34.3 32.0 - 36.0 G/DL 11/30/2024 10:34 AM [facility] RDW 13.4 11.5 - 14.5 % 11/30/2024 10:34 AM [facility] PLT 134 130 - 400 x10'3/uL 11/30/2024 10:34 AM [facility] MPV 9.4 9.3 - 12.2 FL 11/30/2024 10:34 AM [facility] DIFFERENTIAL TYPE AUTOMATED DIFFERENTIAL 11/30/2024 10:35 AM [facility] NEUTROPHILS % 69.6 % 11/30/2024 10:35 AM [facility] LYMPHOCYTES % 19.0 % 11/30/2024 10:35 AM [facility] MONOCYTES % 9.8 % 11/30/2024 10:35 AM [facility] EOSINOPHILS 0.7 % 11/30/2024 10:35 AM [facility] BASOPHILS 0.6 % 11/30/2024 10:35 AM [facility] IMMATURE GRANS % 0.3 % 11/30/19 10:35 AM [facility] ABS. NEUTROPHILS 7.55 1.80 - 7.70 x10'3/uL 11/30/2024 10:35 AM [facility] ABS. LYMPHOCYTES 2.06 1.00 - 4.80 x10'3/uL 11/30/2024 10:35 AM [facility] ABS. MONOCYTES 1.06(H) 0.30 - 0.82 x10'3/uL 11/30/2024 10:35 AM [facility] ABS. EOSINOPHILS 0.08 0.04 - 0.54 x10'3/uL 11/30/2024 10:35 AM [facility] ABS. BASOPHILS 0.06 0.01 - 0.08 x10'3/uL 11/30/2024 10:35 AM [facility] ABS. IMMATURE GRANULOCYTES 0.03 0.00 - 0.49 x10'3/uL 11/30/2024 10:35 AM [facility] RBC MORPHOLOGY SLIDE REVIEWED 2024 10:35 AM [facility] MACRO 1+ 11/30/2024 10:35 AM [facility] PLT EST. ADEQUATE 11/30/2024 10:35 AM [facility] 11/30/2024 9:41 AM MILL ROLL OPERATOR San[facility]ev [facility] Final Resu lt [facility] [address] [place] [address], [place] [phone] * TROPONIN, QUANT (11/30/2024 9:41 AM MILL ROLL OPERATOR) TROPONIN I HIGH SENSITIVITY 5 <79 ng/L 11/30/2024 10:37 AM MILL ROLL OPERATOR [facility] Comment: HIGH DOSES OF BIOTIN, TROPONIN-SPECIFIC AUTOANTIBODIES, AND ANTIBODY THERAPY CONTAINING HAMA MAY INTERFERE WITH THIS TEST RESULT. CORRELATION TO CLINICAL HISTORY AND PRESENTATION RECOMMENDED. 11/30/2024 9:41 AM MILL ROLL OPERATOR San[facility]ev [facility] Final Resu lt [facility] [address] [place] [id number], [place] [phone] * LIPASE (11/30/2024 9:41 AM MILL ROLL OPERATOR) LIPASE 55 13 - 75 UNITS/L 11/30/2024 10:37 AM MILL ROLL OPERATOR [facility] 11/30/2024 9:41 AM MILL ROLL OPERATOR Sanjeev [facility] Final Resu lt Performing Organization Address City/[facility]/ZIP Co de Phone Number [facility] [address] [place] [phone], [place] [phone] * (ABNORMAL) ETHANOL (11/30/2024 9:41 AM MILL ROLL OPERATOR) ALCOHOL S/P/B 0.212(H) <0.003 G/DL 11/30/2024 10:37 AM MILL ROLL OPERATOR [facility] 11/30/2024 9:41 AM MILL ROLL OPERATOR Sanjeev [facility] Final Resu lt Performing Organization Address City/[facility]/ZIP Co de Phone Number [facility] [address] [place] [phone], * HEPATITIS PANEL,ACUTE (07/21/2024 6:36 AM CDT) HEPATITIS B SURFACE AG NON-REACTI VE NON-REACTI VE 07/22/2024 9:45 AM CDT [facility] HEP B CORE IGM NON-REACTI VE NON-REACTI VE 07/22/2024 9:53 AM CDT [facility] HAV IGM NON-REACTI VE NON-REACTI VE 07/22/2024 9:55 AM CDT [facility] HEPATITIS C AB NON-REACTI VE NON-REACTI VE 07/22/2024 9:52 AM CDT [facility] 07/21/2024 6:36 AM CDT Karen Nielson FUELS ENGINEER LABORATORY Final Resul t [facility] [address] [place] [address], from Last 3 Months or Most Recently Relevant to Health Maintenance Insurance [facility] C/O PROVIDER SERVICES CANDELARIO STUART [id number] Care Teams Carcass Trimmer Relationship Specialty Start Date End Date Kalyn Pollock PA-C [address] [place] [phone] PCP - General PHYSICIAN AWAKE OVERNIGHT COUNSELOR 07/20/24
--- OUTSIDE RECORDS SUMMARY | 2024-12-16 14:04 | XMS_ITS | Clinical Summary ---
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
--- OUTSIDE RECORDS SUMMARY | 2024-12-16 14:04 | XMS_ITS | Patient Health Summary ---
Author Organization [facility] Address [address] [facility] [place] [address] Care Team Providers Care Director Zone Name Role Phone Miguel Santos MD, Levi Caceres Primary Care Provider Note from [facility],non-owned Affiliates and Associated Physician Practices is amultiple site organization consisting of ambulatory clinics and hospital sitesin [place], [place], [place] and [place]. This disclosure is being madepursuant to the Care Everywhere program and may not contain all information available regarding this patient. Last updated 18.[facility] Active Problems Problem Noted Date Diagnosed Date Acute liver failure without hepatic coma 024 Social History Tobacco Use Types Packs/Day Years Used Date Smoking Tobacco: Never Assessed Sex and Gender Information Value Date Recorded Sex Assigned at Not on file Gender Identity Not on file Sexual Orientation Not on file Care Teams Director Zone Relationship Specialty Start Date End Date Leiv Rivera Jr., MD [address] [place], [place] [id number] PCP - General 01/29/10
--- OUTSIDE RECORDS SUMMARY | 2024-12-16 14:04 | XMS_ITS | Clinical Summary ---
Author Organization [facility] Address [address] [place] [address] Care Team Providers Care Car Rental Manager Name Role Phone Miguel Santos MD, Levi Caceres Primary Care Provider Source Comments [facility],non-owned Affiliates and Associated Physician Practices is amultiple site organization consisting of ambulatory clinics and hospital sitesin [place], [place], [place] and [place]. This disclosure is being madepursuant to the Care Everywhere program and may not contain all information available regarding this patient. Last updated 18.[facility] Active Problems Problem Noted Date Diagnosed [...] age to complete this topic Care Teams Car Rental Manager Relationship Specialty Start Date End Date Levi Rivera Jr., MD [address] [place], [place] [id number] PCP - General 01/29/10
[2024-12-16] MEDS: BELLADONNA ALK/PHENOB ELIX 10 ML, MAG HYDROX/ALUMINUM HYD/SIMETH 30 ML, LIDOCAINE 2% VI... PO (14:45)
--- NOTE | 2024-12-16 15:24 | ECG_ITS ---
Test Date: 2024-12-16 15:30:19 Measurements Intervals [place] Rate: 74 P: 51 MO: 155 QRS: -4 QRSD: 113 T: 55 QT: 428 QTc: 475 Interpretive Statements SINUS RHYTHM INTRAVENTRICULAR CONDUCTION DELAY CANNOT R/O SEPTAL INFARCT, AGE INDETERMINATE CONSIDER INFERIOR INFARCT, AGE INDETERMINATE BORDERLINE ST-T WAVE ABNORMALITY- HIGH LATERAL LEADS BASELINE ARTIFACT- I, II, AVR, AVL, V1 ABNORMAL ECG Compared to ECG 12/16/2024 12:21:32 NO SIGNIFICANT CHANGE Electronically Signed On 12-16-2024 15:41:43 REPRINT SORTER by Vasu Morrison D.O.
[2024-12-16 15:32] LABS: Influenza A QL RT-PCR Negative (Negative); Influenza B QL RT-PCR Negative (Negative); RSV RNA, RT-PCR Negative (Negative); SARS-CoV-2 RNA PCR Negative (Negative)
[2024-12-16 15:34] LABS: Ethanol 355 mg/dL (<10)
[2024-12-16 15:59] LABS: Troponin I < 0.012 ng/mL (0.000-0.034)
[2024-12-16 16:57] LABS: Amphetamine Screen Urine Negative (Negative); Barbiturate Screen Urine Negative (Negative); Benzodiazepines Screen Urine Negative (Negative); Cannabinoid Screen Urine Positive (Negative); Cocaine Screen Urine Negative (Negative); Methadone Screen Urine Negative (Negative); Opiate Screen Urine Negative (Negative); Phencyclidine Screen Urine Negative (Negative)
--- NOTE | 2024-12-16 17:50 | PC.NURSE ---
Patient states he is wanting to go home. Provider aware and will speak with patient
== END 2024-12-16 18:04 | disposition home or self-care (01) ==
PROVIDERS: Emergency Medicine; Emergency Provider Emergency Medicine; PCP Physician Assistant
DX: F10.129 Alcohol abuse with intoxication, unspecified (principal); Y90.8 Blood alcohol level of 240 mg/100 ml or more; K70.10 Alcoholic hepatitis without ascites; Z11.52 Encounter for screening for COVID-19; F17.210 Nicotine dependence, cigarettes, uncomplicated; Z79.899 Other long term (current) drug therapy; R94.31 Abnormal electrocardiogram [ECG] [EKG]; I45.9 Conduction disorder, unspecified
CPT/HCPCS: 36415; 71046; 76705; 80053; 80307; 82077; 83690; 84484; 85025; 85610; 85730; 87637; 93005; 96361; 96374; 99284; A9270; J2405; J7030

== ENCOUNTER 2025-01-26 13:22 | Emergency (ER) | payer BC, SELFPAY ==
--- NOTE | 2025-01-26 14:00 | ED.CPR ---
HPI - CPR General Chief Complaint: Cardiac Arrest/CPR Stated Complaint: Cardiac arrest Time Seen by Provider: 01/26/25 13:49 History of Present Illness HPI narrative: 24-year-old male with a past medical history including end-stage liver disease and cirrhosis from alcohol abuse. Patient presents in cardiac arrest with CPR in process. Patient had a witnessed cardiac arrest seen by family members. They noticed that he had a shaking episode potentially vomited some blood and then was unresponsive. EMS came to scene, no bystander CPR was initiated, they found the patient pulseless and initiated CPR with Sohan device and supraglottic airway and transported him to the hospital. Initial rhythm PE a, total 4 epinephrine injections were administered through left tibial IO. Total down time on arrival to the emergency department 41 minutes before our efforts. Patient was brought into room 12. For ongoing CPR and resuscitation. Family members arrived to the emergency department and provided collateral formation and states that he was trying to quit drinking recently and was going through withdrawals yesterday with hallucinations and jitteriness. Has been drinking for many years after depression from the loss of his father at home. Related Data Home Medications ?Medication ?Instructions ?Recorded ?Confirmed ?Last Taken ?Type lactulose 10 gram/15 mL oral 10 g PO DAILY 07/27/24 07/27/24 Unknown History solution (Enulose) lisinopril 40 mg tablet 40 mg PO DAILY 07/27/24 07/27/24 Unknown History Allergies Allergy/AdvReac Type Severity Reaction Status Date / Time No Known Allergies Allergy Mild Verified 12/16/24 12:57 Review of Systems Review of Systems: ROS unobtainable: Yes unobtainable due to medical condition [facility] Past Medical History Medical History Alcoholic hepatitis Depression Tobacco dependence Alcohol abuse Surgical History Surgical History No history of previous surgery Family History Family History Mother Hypertension Social History Social History Social History: The patient lives in [place] with his mother and younger brother. He works at a local [employer]. He smokes about a pack of cigarettes a day. Drinks between a pint and a 5th of hard alcohol daily. Occasional marijuana use. He designates his mother, Kanchan Dyer, as his surrogate decision maker and wishes to be a full code. Smoking status: Never smoker Spiritual care concerns: No Exam Narrative: GENERAL: Cardiac arrest HEAD: Atraumatic EYES: Pupils fixed and dilated, scleral icterus ENT: Supraglottic airway, black vomitus in the oropharynx and airway CHEST: Coarse rhonchorous breath sounds with BVM, no spontaneous respiratory effort HEART: Pulseless ABDOMEN: Nondistended EXTREMITIES: No peripheral edema, left tibial IO SKIN: Jaundiced skin, cool extremities NEURO: GCS 3 Course Vital Signs Vital signs: Vital Signs Oxygen Delivery Bag Valve Mask 01/26/25 13:19 Oxygen Delivery Bag Valve Mask 01/26/25 13:19 Procedures Intubation Intubation #1: Intubation Date: 01/26/25 Intubation Time: 13:23 Time out performed: Yes sedative: none Laryngoscope: fiber optic video scope Tube Size (cm): 7.5 Method of Intubation: orotracheal Number of Attempts: 1 Tube Secured Depth (cm): 25 Tube Secured Location: lips Tube Placement Confirmation: visualized tube passing through cords, equal breath sounds bilaterally, no breath sounds over epigastrium and confirmation by capnometry Patient Tolerated Procedure: well and no complications Intubation Complications: none Additional Comments: Dark blood in the oropharynx, no active bleeding MDM - Cardiac Arrest/CPR MDM Narrative Medical decision making narrative: 24-year-old male with history of alcohol abuse with resultant liver disease and cirrhosis. He presents in cardiac arrest. Total down time 41 minutes prior to arrival to the emergency department. CPR initiated by EMS with Oshan device and supraglottic airway. High quality CPR continued on transition to the emergency room with Sohan device ongoing. Immediately intubated on 1st pass success. Left tibial IO infusing fluids. He has left 20 gauge IV in his forearm, additional IV access was obtained bilaterally. Patient is heavily jaundiced, noted to be in pulseless electrical activity on each pulse check. Patient had 4 rounds of epinephrine prior to arrival. Patient had additional rounds of CPR with pulse checks every 2 minutes revealing no palpable pulse in the carotids or femoral region, no dopplerable pulse, no cardiac activity on bedside ultrasound. Pulseless electrical activity on the phototypesetting equipment monitor with a bradycardic escape rhythm likely secondary to the epinephrine. Patient was given 2 amps of bicarbonate, calcium chloride, a total of 5 additional epinephrine infusions totaling 9 mg epinephrine in total. Epinephrine was given in 3-4 minute intervals. Each pulse check revealed pulseless electrical activity, final pulse check at 1:39 p.m. showed cardiac standstill with clotted off blood in the bilateral ventricles, severe dilated cardiomyopathy seen with dilated ventricles and atrium, no cardiac motion, no cardiac activity, fixed and dilated pupils, no spontaneous respiratory effort. No pulse. Time of called 1339. I went and informed the family members. Patient's family members were verbally abusive and threatening to myself and staff members after hearing the news. They were left to grieve on their own terms and will be brought back to see the patient when safe. soft work wrapper layer and examiner called. Medical Records Attestation: I reviewed the patient's medical records. Critical Care Time Critical Care Time Critical Care Time: Yes Total Critical Care Time: 35 (Critical care time is exclusive of the separately billed procedures above) Discharge Plan Discharge Clinical Impression: Cardiac arrest, Alcohol abuse, End stage liver disease Patient Disposition: Condition: Patient Language: Albanian Prescriptions: No Action lisinopril 40 mg tablet 40 mg PO DAILY lactulose [Enulose] 10 gram/15 mL solution 10 g PO DAILY thiamine HCl (vitamin B1) [Vitamin B-1] 100 mg Tablet 100 mg PO QAM Qty: 30 0RF folic acid 1 mg Tablet 1 mg PO DAILY Qty: 30 0RF Thera M Plus (ferrous fumarat) 9 mg iron-400 mcg Tablet 1 tablet PO QAM Qty: 30 0RF omeprazole 40 mg capsule,delayed release(DR/EC) 40 mg PO DAILY Qty: 30 0RF chlordiazepoxide HCl 25 mg capsule 25 mg PO BID PRN (Reason: alcohol withdrawal) Qty: 10 0RF Follow-up/Referrals: Phill,CANDELARIO Mccain [Primary Care Provider] - Time of Disposition: 13:39
--- OUTSIDE RECORDS SUMMARY | 2025-01-26 14:46 | XMS_ITS | Clinical Summary ---
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
--- OUTSIDE RECORDS SUMMARY | 2025-01-26 14:47 | XMS_ITS | Clinical Summary ---
Author Organization [facility] Address [address] [place] [address] Care Team Providers Care Customer Support Agent Name Role Phone Kalyn Pollock PA-C Primary Care Provider [phone]- [phone] Allergies No known active allergies Medications Multiple [...] mouth daily. Active FLUoxetine (PROZAC) 10 MG tabletIndications: Anxiety Take 1 tablet (10 mg total) by mouth daily. 30 tablet 4 Active folic acid (FOLVITE) 1 MG tablet Take 1 tablet (1 mg total) by mouth daily. 30 tablet 4 Active lactulose (CHRONULAC) 10 GM/15ML solution Take 30 mLs (20 g total) by mouth 2 (two) times daily. 3600 mL 4 Active omeprazole (PRILOSEC) 40 MG capsule Take 1 capsule (40 mg total) by mouth daily. 30 capsule 5 Active Active Problems Problem Noted Date Diagnosed Date [facility] withdrawal [facility]) 07/20/2024 Encounters Date Type Department Care Team Description 11/30/2024 9:43 AM LOSS CONTROL TECHNICIAN - 11/30/2024 1:32 PM LOSS CONTROL TECHNICIAN Emergency [facility] [place] [address] Crys Wynn PA Shortness Of Breath ; Dizziness Discharge Disposition: Home or Self Care (Routine Discharge) 11/30/2024 Travel 11/28/2024 2:28 AM LOSS CONTROL TECHNICIAN - 11/28/2024 3:00 AM [facility] Emergency [facility] [place] [address] Billy Elizalde MD,PHD Earache Discharge Disposition: Home or Self Care (Routine Discharge) 11/28/2024 Travel from Last 3 Months Social History Tobacco Use Types Packs/Day Years Used Date Smoking Tobacco: Every Day Cigarettes Smokeless Tobacco: Never Tobacco Cessation:Ready to Q uit: Not Asked; Counseling Given: Not Answered Alcohol Use Standard Drinks/Week Comments Yes 0 (1 standard drink = 0.6 oz pur e alcohol) [facility] Utilities Answer Date Recorded In the past 12 months has e [employer], gas, oil, or water [employer] threatened to shut off services in your [...] any time in the past 12 m [facility], were you homeless or living in a correction (including now)? No 07/21/2024 Sex and Gender Information Value Date Recorded Sex Assigned at Male 11/28/2024 2:07 AM LOSS CONTROL TECHNICIAN Legal Sex Male 6:30 PM CDT Gender Identity Not on file Sexual Orientation Not on file Last Filed Vital Signs Vital Sign Reading Time Taken Comments Blood Pressure 156/115 11/30/2024 12:00 PM LOSS CONTROL TECHNICIAN Pulse 100 11/30/2024 11:59 AM LOSS CONTROL TECHNICIAN Temperature 36.7 C (98 F) 11/30/2024 11:59 AM LOSS CONTROL TECHNICIAN Respiratory Rate 18 11/30/2024 11:59 AM LOSS CONTROL TECHNICIAN Oxygen Saturation 98% 11/30/2024 11:59 AM LOSS CONTROL TECHNICIAN Inhaled Oxygen Concentration - - Weight 81.6 kg (180 lb) 11/28/2024 2:05 AM LOSS CONTROL TECHNICIAN Height 182.9 cm (6') 11/30/2024 8:59 AM LOSS CONTROL TECHNICIAN Body Mass Index 24.41 11/28/2024 2:05 AM LOSS CONTROL TECHNICIAN Plan of Treatment Health Maintenance Due Date [...] XR CHEST PA+LAT STAT 11/30/2024 10:15 AM LOSS CONTROL TECHNICIAN ECG 12-LEAD STAT 11/30/2024 9:52 AM LOSS CONTROL TECHNICIAN URINALYSIS, AUTO, COMPLETE STAT 11/30/2024 9:48 AM LOSS CONTROL TECHNICIAN ETHANOL STAT 11/30/2024 9:41 AM LOSS CONTROL TECHNICIAN LIPASE STAT 11/30/2024 9:41 AM LOSS CONTROL TECHNICIAN TROPONIN, QUANT STAT 11/30/2024 9:41 AM LOSS CONTROL TECHNICIAN COMPREHENSIVE METABOLIC PANEL STAT 11/30/2024 9:41 AM LOSS CONTROL TECHNICIAN CBC W/DIFF AUTOMATED STAT 11/30/2024 9:41 AM LOSS CONTROL TECHNICIAN HEPATITIS PANEL,ACUTE Routine 07/21/2024 6:36 AM CDT from Last 3 Months or Most Recently Relevant to Health Maintenance Results * XR CHEST PA+LAT (11/30/2024 10:15 AM LOSS CONTROL TECHNICIAN) Anatomical Region Laterality Modality Chest Radiographic Alicia ging 11/30/2024 10:1 6 AM LOSS CONTROL TECHNICIAN Impressions 11/30/2024 10:16 AM LOSS CONTROL TECHNICIAN =====IMPRESSION:===== No radiographic evidence of active chest disease. Ordered By: CRYS WYNN Interpreted By: Dante Cadena MD, 11/30/2024 10:16 AM Narrative 11/30/2024 10:16 AM LOSS CONTROL TECHNICIAN [place] [address] Examination: Chest x-ray 2 view Exam date/time: [...] Procedure Note Dante Cadena MD - 11/30/2024 [place] [address] Examination: Chest x-ray 2 view Exam date/time: [...] evidence of active chest disease. Ordered By: CRYS WYNN Interpreted By: Dante Cadena MD, 11/30/2024 10:16 AM us [facility] Final Resu lt * ECG 12 lead (11/30/2024 9:52 AM LOSS CONTROL TECHNICIAN) 11/30/2024 9:52 AM LOSS CONTROL TECHNICIAN Narrative [facility] - 11/30/2024 1:51 PM LOSS CONTROL TECHNICIAN [place] Test Date: 2024-11-30 Pat Name: NONA PIRESTHAM Department: 41 Room: SERVIN Gender: Male [employer]: [id number] : 2000 Requested By: CRYS WYNN Order Number: [id number] Reading : Dante Rios Measurements Intervals [place] Rate: 74 P: 62 ME: 166 QRS: 6 QRSD: 112 T: 61 QT: 419 QTc: 465 Interpretive Statements SINUS RHYTHM MODERATE INTRAVENTRICULAR CONDUCTION DELAY [110+ ms QRS DURATION] Compared to ECG 07/20/2024 10:57:07 Intraventricular conduction delay now present Poor R-wave progression no longer present CONTROL TECHNICIAN Procedure Note Dante Rios MD - 11/30/2024 [facility] [place] [address] [facility] Test Date: 2024-11-30 Pat Name: NONA VENCESCARLEE Department: 41 Room: SERVIN Gender: Male [employer]: [id number] : 2000 Requested By: CRYS WYNN Order Number: [id number] Reading TRISTAN Rios Measurements Intervals [place] Rate: 74 P: 62 ME: 166 QRS: 6 QRSD: 112 T: 61 QT: 419 QTc: 465 Interpretive Statements SINUS RHYTHM MODERATE INTRAVENTRICULAR CONDUCTION DELAY [110+ ms QRS DURATION] Compared to ECG 07/20/2024 10:57:07 Intraventricular conduction delay now present Poor R-wave progression no longer present CONTROL TECHNICIAN us Crys PALOMINO ECG ORDERABLES Final Resu lt [facility] * (ABNORMAL) URINALYSIS, AUTO, COMPLETE (11/30/2024 9:48 AM LOSS CONTROL TECHNICIAN) SPECIMEN TYPE URINE CLEAN CATCH 11/30/2024 10:[address] [facility] COLOR (U) DARK YELLOW 11/30/2024 10:[address] [facility] TRANSPARENCY CLEAR 11/30/2024 10:[address] [facility] SPECIFIC GRAVITY (U) 1.026 1.001 - 1.030 11/30/2024 10:[address] [facility] U PH 6.5 5.0 - 9.0 11/30/2024 10:[address] [facility] LEUKOCYTES (U) NEGATIVE NEGATIVE 11/30/2024 10:[address] [facility] NITRITES NEGATIVE NEGATIVE 11/30/2024 10:[address] [facility] PROTEIN RANDOM (U) 300(H) <30 MG/DL 11/30/2024 10:[address] [facility] GLUCOSE (U) NORMAL NORMAL MG/DL 11/30/2024 10:[address] [facility] KETONES MG/DL (U) NEGATIVE NEGATIVE MG/DL 11/30/2024 10:[address] [facility] UROBILINOGEN 8.0(A) NORMAL MG/DL 11/30/2024 10:[address] [facility] BILIRUBIN (U) 1(A) NEGATIVE MG/DL 11/30/2024 10:[address] [facility] BLOOD (U) 3+(A) NEGATIVE 11/30/2024 10:[address] [facility] MUCUS MODERATE /LPF 11/30/2024 10:[address] [facility] WBC/HPF 4 <6 /HPF 11/30/2024 10:[address] [facility] RBC/HPF >100(H) <6 /HPF 11/30/2024 10:[address] [facility] BACTERIA (U) RARE(A) NONE /HPF 11/30/2024 10:[address] [facility] SQUAMOUS EPITHELIALS RARE /HPF 11/30/2024 10:[address] [facility] URINE SPECIMEN OBTAINED BY CLEAN CATCH PROCEDURE / Unknown 11/30/2024 9:48 AM LOSS CONTROL TECHNICIAN us Crys PALOMINO URINE ORDERABLES Final Res ult [facility] [address] [place] [address], [place] [phone] * (ABNORMAL) COMPREHENSIVE METABOLIC PANEL (11/30/2024 9:41 AM LOSS CONTROL TECHNICIAN) GLUCOSE 124(H) 70 - 99 MG/DL 11/30/2024 10:[address] [facility] BUN 8 7 - 18 MG/DL 11/30/2024 10:[address] [facility] CREATININE S/P/B 0.52(L) 0.7 - 1.3 MG/DL 11/30/2024 10:[address] [facility] SODIUM S/P/B 140 136 - 145 MMOL/L 11/30/2024 10:[address] [facility] POTASSIUM S/P/B 3.3(L) 3.5 - 5.1 MMOL/L 11/30/2024 10:[address] [facility] CHLORIDE S/P/B 105 97 - 115 MMOL/L 11/30/2024 10:[address] [facility] CO2 29.9 21 - 32 MMOL/L 11/30/2024 10:[address] [facility] CALCIUM S/P/B 9.0 8.5 - 10.1 MG/DL 11/30/2024 10:[address] [facility] BILIRUBIN TOTAL S/P/B 2.9(H) 0.2 - 1.2 MG/DL 11/30/2024 10:[address] [facility] Comment: THIS ASSAY IS NOT RECOMMENDED FOR PATIENTS UNDERGOING TREATMENT WITH ELTROMBOPAG DUE TO THE POTENTIAL FOR FALSELY ELEVATED RESULTS. TOTAL PROTEIN S/P/B 7.5 6.4 - 8.2 G/DL 11/30/2024 10:[address] [facility] ALBUMIN S/P/B 2.8(L) 3.4 - 5.0 G/DL 11/30/2024 10:[address] [facility] AST 185(H) 15 - 37 U/L 11/30/2024 10:[address] [facility] ALT 60 16 - 60 U/L 11/30/2024 10:[address] [facility] ALKALINE PHOSPHATASE S/P/B 173(H) 50 - 136 U/L 11/30/2024 10:[address] [facility] ANION GAP 5.1 2 - 10 MMOL/L 11/30/2024 10:[address] [facility] BUN CREATININE RATIO 15.3 6 - 26 11/30/2024 10:[address] [facility] A/G RATIO 0.6(L) 1.0 - 2.0 RATIO 11/30/2024 10:[address] [facility] GFR ESTIMATE >90 >90 ML/MIN/1.7 3 M2 11/30/2024 10:[address] [facility] Comment: NOTE: eGFR is not calculated for patients <18 years of age or gender unknown. This is an estimated GFR calculation using the new CKD EPI creatinine equation without race and so does not require a correction factor for race. This estimated GFR should not be used for calculating drug doses. 11/30/2024 9:41 AM LOSS CONTROL TECHNICIAN us [facility] Final Resu lt [facility] [address] [place] [address], * (ABNORMAL) CBC W/DIFF AUTOMATED (11/30/2024 9:41 AM LOSS CONTROL TECHNICIAN) WBC 10.84 4.5 - 11.0 x10'3/uL 11/30/2024 10:[address] [facility] RBC 3.76(L) 4.70 - 6.10 x10'6/uL 11/30/2024 10:[address] [facility] HGB 13.6(L) 14.0 - 18.0 G/DL 11/30/2024 10:[address] [facility] HCT 39.6(L) 43.0 - 54.0 % 11/30/2024 10:[address] [facility] MCV 105.3(H) 80.0 - 94.0 FL 11/30/2024 10:[address] [facility] MCH 36.2(H) 27.0 - 31.0 PG 11/30/2024 10:[address] [facility] MCHC 34.3 32.0 - 36.0 G/DL 11/30/2024 10:[address] [facility] RDW 13.4 11.5 - 14.5 % 11/30/2024 10:[address] [facility] PLT 134 130 - 400 x10'3/uL 11/30/2024 10:[address] [facility] MPV 9.4 9.3 - 12.2 FL 11/30/2024 10:[address] [facility] DIFFERENTIAL TYPE AUTOMATED DIFFERENTIAL 11/30/2024 10:[address] [facility] NEUTROPHILS % 69.6 % 11/30/2024 10:[address] [facility] LYMPHOCYTES % 19.0 % 11/30/2024 10:[address] [facility] MONOCYTES % 9.8 % 11/30/2024 10:[address] [facility] EOSINOPHILS 0.7 % 11/30/2024 10:[address] [facility] BASOPHILS 0.6 % 11/30/2024 10:[address] [facility] IMMATURE GRANS % 0.3 % 11/30/19 10:[address] [facility] ABS. NEUTROPHILS 7.55 1.80 - 7.70 x10'3/uL 11/30/2024 10:[address] [facility] ABS. LYMPHOCYTES 2.06 1.00 - 4.80 x10'3/uL 11/30/2024 10:[address] [facility] ABS. MONOCYTES 1.06(H) 0.30 - 0.82 x10'3/uL 11/30/2024 10:[address] [facility] ABS. EOSINOPHILS 0.08 0.04 - 0.54 x10'3/uL 11/30/2024 10:[address] [facility] ABS. BASOPHILS 0.06 0.01 - 0.08 x10'3/uL 11/30/2024 10:[address] [facility] ABS. IMMATURE GRANULOCYTES 0.03 0.00 - 0.49 x10'3/uL 11/30/2024 10:[address] [facility] RBC MORPHOLOGY SLIDE REVIEWED 2024 10:[address] [facility] MACRO 1+ 11/30/2024 10:[address] [facility] PLT EST. ADEQUATE 11/30/2024 10:[address] [facility] 11/30/2024 9:41 AM LOSS CONTROL TECHNICIAN [facility] Final Resu lt Performing Organization Address City/[facility]/ZIP Co de Phone Number [facility] [address] [place] [address], [place] [phone] * TROPONIN, QUANT (11/30/2024 9:41 AM LOSS CONTROL TECHNICIAN) TROPONIN I HIGH SENSITIVITY 5 <79 ng/L 11/30/2024 10:[address] [facility] Comment: HIGH DOSES OF BIOTIN, TROPONIN-SPECIFIC AUTOANTIBODIES, AND ANTIBODY THERAPY CONTAINING HAMA MAY INTERFERE WITH THIS TEST RESULT. CORRELATION TO CLINICAL HISTORY AND PRESENTATION RECOMMENDED. 11/30/2024 9:41 AM LOSS CONTROL TECHNICIAN [facility] Final Resu lt Performing Organization Address City/[facility]/ZIP Co de Phone Number [facility] [address] [place] [address], [place] [phone] * LIPASE (11/30/2024 9:41 AM LOSS CONTROL TECHNICIAN) LIPASE 55 13 - 75 UNITS/L 11/30/2024 10:[address] [facility] 11/30/2024 9:41 AM LOSS CONTROL TECHNICIAN [facility] Final Resu lt [facility] [address] [place] [address], [place] [phone] * (ABNORMAL) ETHANOL (11/30/2024 9:41 AM LOSS CONTROL TECHNICIAN) ALCOHOL S/P/B 0.212(H) <0.003 G/DL 11/30/2024 10:37 AM LOSS CONTROL TECHNICIAN [facility] 11/30/2024 9:41 AM LOSS CONTROL TECHNICIAN [facility] Final Resu lt Performing Organization Address [facility] de Phone Number [facility] [address] [place] [address], [place] [phone] * HEPATITIS PANEL,ACUTE (07/21/2024 6:36 AM CDT) HEPATITIS B SURFACE AG NON-REACTI VE NON-REACTI VE 07/22/2024 9:45 AM CDT [facility] HEP B CORE IGM NON-REACTI VE NON-REACTI VE 07/22/2024 9:53 AM CDT [facility] HAV IGM NON-REACTI VE NON-REACTI VE 07/22/2024 9:55 AM CDT [facility] HEPATITIS C AB NON-REACTI VE NON-REACTI VE 07/22/2024 9:52 AM CDT [facility] 07/21/2024 6:36 AM CDT Karen Nielson APRN LABORATORY Final Resul t [facility] [address] [place] [address], from Last 3 Months or Most Recently Relevant to Health Maintenance Insurance [facility] C/O PROVIDER SERVICES CANDELARIO STUART [id number] Care Teams Customer Support Agent Relationship Specialty Start Date End Date Kalyn Pollock PA-C [address] [place] [phone] PCP - General PHYSICIAN TRIPLE AIR VALVE TESTER 07/20/24
--- OUTSIDE RECORDS SUMMARY | 2025-01-26 14:47 | XMS_ITS | Clinical Summary ---
Author Organization [facility] Address [address] [place] [address] Care Team Providers Care Filling Hauler Weaving Name Role Phone Miguel Santos MD, Levi Caceres Primary Care Provider Source Comments [facility],non-owned Affiliates and Associated Physician Practices is amultiple site organization consisting of ambulatory clinics and hospital sitesin [place], [place], [place] and [place]. This disclosure is being madepursuant to the Care Everywhere program and may not contain all information available regarding this patient. Last updated 18.[facility] Active Problems Problem Noted Date [...] VACCINE (1 - Male 3-dose series) 2014 DTAP/TDAP/TD VACCINES (1 - Tdap) 2018 HEPATITIS B VACCINE (1 of 3 - 19+ 3-dose series) 2018 COVID-19 VACCINE (1 - 2023-2 5 season) 2024 INFLUENZA VACCINE (#1) 2024 DEPRESSION SCREENING 11/03/2024 ZOSTER VACCINE (1 of 2) 2049 HEPATITIS C SCREENING Completed 07/21/2024 HIB VACCINE Aged Out No longer eligi ble based on patient's age to complete this topic MENINGOCOCCAL (Group B) VACC INE SHARED DECISION-MAKING Aged Out No longer eligibl e based on patient's age to complete this topic MENINGOCOCCAL GROUPS A/C/Y/W VACCINE Aged Out No longer eligible b ased on patient's age to complete this topic PNEUMOCOCCAL VACCINE Aged Out No long er eligible based on patient's age to complete this topic Care Teams Filling Hauler Weaving Relationship Specialty Start Date End Date Levi Rivera Jr., MD [address] [place], [place] [phone] PCP - General 01/29/10
--- OUTSIDE RECORDS SUMMARY | 2025-01-26 14:47 | XMS_ITS | Clinical Summary ---
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
--- OUTSIDE RECORDS SUMMARY | 2025-01-26 14:47 | XMS_ITS | Referral Summary ---
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
--- NOTE | 2025-01-26 15:03 | PCCCNOTE ---
Called to the pt's room to assist with any Care Coordination needs. Met with the mother Kanchan Wagoner, Uncle, brother and brother's girlfriend in the family room. The brother's girlfriend stated she was at home with the pt and left him in the living room sitting on the couch. Stated she heard a strange noise coming from the patient re-entered the room and found him stiff, with a slight tremor and blood coming from his mouth. Stated at that time she called 911. Assisted with family with any questions, concerns, with the provider speaking to family related to the pt's . Shared grief/counseling resources for the mother.-aguilar
--- NOTE | 2025-01-26 16:50 | PC.NURSE ---
ET tube removed prior to taking pt to the morgue.
== END 2025-01-26 16:53 | disposition expired ==
PROVIDERS: Emergency Provider Student in an Organized Health Care Education/Training Program; PCP Physician Assistant
DX: I46.9 Cardiac arrest, cause unspecified (principal); F10.10 Alcohol abuse, uncomplicated; K70.10 Alcoholic hepatitis without ascites; F32.A Depression, unspecified; F17.210 Nicotine dependence, cigarettes, uncomplicated; Z79.899 Other long term (current) drug therapy
CPT/HCPCS: 31500; 92950; 96374; 96375; 99284; J0171